=== PATIENT | female | born 1990 | race Caucasian/White ===

== ENCOUNTER → 2016-03-01 | Outpatient (CLI) | payer OTHER ==
[~2016-03-01] MED LIST: *ANUSOI TOP; IBUP600T OR; MILKSUS OR; NO HOME MEDICATION; No Historical Meds; PRENTAB8 PO; VICO5TAB; ZOLO50TA OR; ZOLO50TA PO
--- NOTE | 2016-03-01 18:04 | REP ---
Clinical: Early . Assess for viability. Technique: Transabdominal and transvaginal first trimester obstetrical ultrasound with Doppler interrogation of the maternal ovaries and fetus. Findings: Retroverted uterus measures 8.2 x 5.6 x 6.9 cm. Gestational sac with yolk sac and pole identified. CRL of 3.1 mm corresponds to 5 weeks 6 days gestational age and no cardiac activity is identified. Maternal ovaries are normal in appearance and vascularity without torsion. Right maternal ovary measures 3.6 x 3.6 x 3.5 cm with 2.3 cm cyst; RI equal 0.71. Left maternal ovary measures 3.9 x 2.7 x 2.3 cm with 2.4 cm corpus luteal cyst; RI equals 0.62. No pelvic fluid. Impression:Early at 5w 6d gestational age without cardiac activity. Differential diagnosis includes early live as well as spontaneous . Correlation with serial HCG levels is recommended along with a repeat ultrasound if necessary. Signed by José Miguel Moreno MD 03/01/2016 05:55 P
== END ==
LOC: M RAD 17:06
PROVIDERS: ATTEND Nurse Practitioner Women's Health
DX: O36.80X0 Pregnancy with inconclusive fetal viability, not applicable or unspecified (principal)

== ENCOUNTER → 2016-03-03 | Outpatient (CLI) | payer OTHER | LOC: M LAB 14:26 | PROVIDERS: ATTEND Nurse Practitioner Women's Health | DX: O20.0 Threatened abortion (principal) ==

== ENCOUNTER → 2016-03-06 | Outpatient (CLI) | payer OTHER | LOC: M LAB 09:46 | PROVIDERS: ATTEND Nurse Practitioner Women's Health | DX: O02.1 Missed abortion (principal) ==

== ENCOUNTER 2016-04-16 18:11 | Emergency (ER) | payer OTHER ==
[2016-04-16] MEDS ORDERED: METHOCARBAMOL 500 MG TAB As Ordered ONE (19:35)
[2016-04-16] MEDS ORDERED: IBUPROFEN 400 MG TAB As Ordered ONE (19:35)
--- NOTE | 2016-04-16 20:55 | EDDOCDS ---
Physician Documentation [facility] Name: Lucía Newton Age: 26 yrs Sex: Female : 1990 Arrival Date: 04/16/2016 Time: 18:11 Bed TR7 Private MD: Carlos Hancock A. Disposition: 04/16/16 20:19 Discharged to Home/Self Care. Impression: Pain in left shoulder - AC SEPARATION, MILD. - Condition is Stable. - Discharge Instructions: Shoulder Separation. - Prescriptions for Ultram 50 mg Oral Tablet - take 1 tablet by ORAL route every [address] MADRID MDD: 4 tabs; 20 tablet. - Medication Reconciliation, Local Pharmacy Hours, Work Release Form - 1 day form. - Follow up: [facility]; When: 2 - 3 days; Reason: Recheck today's complaints, Continuance of care. - Problem is new. - Symptoms have improved. - Notes: USE SLING AND ULTRAM INSTRUCTED, FOLLOW UP WITH [facility], RETURN TO THE ER IF THE SYMPTOMS WORSEN OR BECOME CONCERNING Historical: - Allergies: pecans; - Home Meds: 1. none - PMHx: ectopic ; - PSHx: Exploratory during ectopic; - Social history: Smoking status: Patient uses tobacco products, current some day smoker. No barriers to communication noted, The patient speaks fluent Maltese, Speaks appropriately for age. - Family history: Not pertinent. - : The pt / caregiver states he / she is not on anticoagulants. Home medication list is obtained from the patient. - Exposure Risk Screening:: None identified. 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 1 in. (154.94 cm) (R); Pain 6/10; 20:53 BP 129 / 67; Pulse 78; Resp 16; Pulse Ox 97% on R/A; cz 18:12 Body Mass Index 24.56 (58.97 kg, 154.94 cm) lr2 Procedures: 20:21 Fracture care/splinting: Splint applied to left arm using sling, applied by nurse. ck7 Examined by me, post splint application: neurovascular intact, 2+ distal pulses palpable, brisk capillary refill noted, Patient tolerated well. MDM: 19:31 Ibuprofen 400 mg PO once ordered. ck7 19:31 Methocarbamol 1 grams PO once ordered. ck7 19:32 Shoulder, Complete Ordered. EDMS 19:57 Financial registration complete. gjb 20:18 Sling ordered. ck7 20:47 [facility] [place] was scanned into [employer] and attached to record. gjb Administered Medications: 19:39 Drug: Ibuprofen 400 mg [ibuprofen 400 mg tablet (1 tabs)] Route: PO; cz 19:39 Drug: Methocarbamol 1 grams [methocarbamol 500 mg tablet (2 tabs)] Route: PO; cz Signatures: Dispatcher [employer] EDMS Awais Ashby, RN RN Nelson Ibanez, RPA-C RPA-Cck7 Suyapa UlloaRN RN Kathrin Gayle The chart was reviewed and I authenticate all verbal orders and agree with the evaluation and treatment provided.Attachments: 20:47 [facility] Payment Agreement gjb [email or web address]
--- NOTE | 2016-04-16 20:55 | EDDOCDS ---
Nurse's Notes [facility] Name: Lucía Newton Age: 26 yrs Sex: Female : 1990 Arrival Date: 04/16/2016 Time: 18:11 Bed TR7 Private MD: Carlos Hancock A. Diagnosis: Pain in left shoulder-AC SEPARATION, MILD Presentation: 04/16 18:18 Presenting complaint: Patient states: pt c/o left shoulder and left upper back pain, ead denies known injury. Adult Sepsis Screening: The patient does not have new or worsening altered mentation. Patient's respiratory rate is less than 22. Systolic blood pressure is greater than 100. Patient has a qSOFA score of 0- Negative Sepsis Screen. Suicide/Homicide risk assessment- the patient denies having any suicidal and/or homicidal ideations and does not present with any other emotional, behavioral or mental health complaints. Status: Patient is not a animal services officer or dependent. Transition of care: patient was not received from another setting of care. 18:18 Acuity: CAROLYNN Level 4 ead 18:18 Method Of Arrival: Walkin/Carried/Asstd ead Triage Assessment: 18:19 General: Appears in no apparent distress, comfortable, Behavior is appropriate for age, ead cooperative. Pain: Location: left trapezius, left scapular area and anterior aspect of left shoulder Pain currently is 6 out of 10 on a pain scale. HIV screening NA for this visit Offered previously. Neurological: Level of Consciousness is awake, alert, obeys commands, Oriented to person, place, time. Respiratory: Airway is patent Respiratory effort is even, unlabored. Derm: Skin is pink, warm & dry. Musculoskeletal: Reports pain in left trapezius, left scapular area and anterior aspect of left shoulder. WEB ENGINEER: 18:19 LMP 03/26/2016 ead Historical: - Allergies: pecans; - Home Meds: 1. none - PMHx: ectopic ; - PSHx: Exploratory during ectopic; - Social history: Smoking status: Patient uses tobacco products, current some day smoker. No barriers to communication noted, The patient speaks fluent [place] Citizen, Speaks appropriately for age. - Family history: Not pertinent. - : The pt / caregiver states he / she is not on anticoagulants. Home medication list is obtained from the patient. - Exposure Risk Screening:: None identified. Screenin:53 Screening information is obtained from the patient. Fall risk: No risks identified. cz Assistance ADL's: requires no assistance with activities of daily living. Abuse/DV Screen: The patient / caregiver reports he/she is: not in a situation that causes fear, pain or injury. Nutritional screening: No deficits noted. home support is adequate. Assessment: 20:53 Reassessment: Patient appears in no apparent distress at this time. Patient states cz symptoms have improved. alert female with left shoulder pain with RO . Vital Signs: 18:12 BP 105 / 64; Pulse 75; Resp 16; Temp 97.3(O); Pulse Ox 99% on R/A; Weight 58.97 kg (R); lr2 Height 5 ft. 1 in. (154.94 cm) (R); Pain 6/10; 20:53 BP 129 / 67; Pulse 78; Resp 16; Pulse Ox 97% on R/A; cz 18:12 Body Mass Index 24.56 (58.97 kg, 154.94 cm) lr2 Vitals: 18:12 Log In Time: April 16, 2016 at 18:11. lr2 ED Course: 18:12 Patient visited by Shelby Pérez. lr2 18:12 Patient moved to Waiting lr2 18:13 Carlos Hancock is Private Physician. lr2 18:13 Patient moved to Pre RCE lr2 18:18 Triage Initiated ead 19:08 Patient moved to Triage 1 ar3 19:15 Nelson Valentine RPA-C [facility]. ck7 19:15 Dileep Reyes DO is Attending Physician. ck7 19:16 Patient visited by Nelson Valentnie RPA-C. ck7 19:39 Patient moved to TR8 cz 19:59 Patient moved to TR1 ar3 20:17 Patient visited by Nelson Valentine RPA-C. ck7 20:18 [facility] is Referral Physician. ck7 20:47 [facility] Payment Agreement was scanned into [employer] and attached to record. gjb 20:52 Patient moved to TR7 ar3 20:53 The patient / caregiver is instructed regarding the plan of care and ED course. cz 20:53 No IV's were initiated during this patient's visit. No procedures done that require cz assistance. Administered Medications: 19:39 Drug: Ibuprofen 400 mg [ibuprofen 400 mg tablet (1 tabs)] Route: PO; cz 19:39 Drug: Methocarbamol 1 grams [methocarbamol 500 mg tablet (2 tabs)] Route: PO; cz Order Results: There are currently no results for this order. Outcome: 20:19 Discharge ordered by Provider. ck7 20:53 Discharge Assessment: Patient awake, alert and oriented x 3. No cognitive and/or cz functional deficits noted. Patient verbalized understanding of disposition instructions. patient administered narcotics - no. The following High Risk Discharge criteria are identified: None. Discharged to home ambulatory. Condition: stable. Discharge instructions given to patient, Instructed on discharge instructions, follow up and referral plans. medication usage, Demonstrated understanding of instructions, medications, Pt was receptive of discharge instructions/ teaching. Prescriptions given X 1. No special radiology studies were completed. Property :Personal belongings accompany Pt. 20:55 Patient left the ED. cz Signatures: Awais Ashby, RN RN Asuncion Lucio, GENERATION MECHANIC HELPER GENERATION MECHANIC HELPER ar3 Nelson Valentine, RPA-C RPA-Cck7 Suyapa Ulloa,RN RN Kathrin Gayle Laura lr2 MTDD
--- NOTE | 2016-04-17 07:09 | REP ---
Left shoulder series: three views. History: Deformity and swelling. Findings: The left distal clavicle is aligned somewhat superior with respect to the acromion process consistent with an AC separation injury. This should be correlated clinically. There is no discernible overlying soft tissue swelling. The glenohumeral articulation is normally aligned. No fracture seen. Impression: Possible AC separation injury, mild. No fracture seen. Signed by Juancho John MD 04/17/2016 08:31 A
--- NOTE | 2016-04-18 21:56 | EDDOCDS ---
Physician Documentation [facility] Name: Lucía Newton Age: 26 yrs Sex: Female : 1990 Arrival Date: 04/16/2016 Time: 18:11 Bed TR7 Private MD: Carlos Hancock A. Disposition: 04/16/16 20:19 Discharged to Home/Self Care. Impression: Pain in left shoulder - AC SEPARATION, MILD. - Condition is Stable. - Discharge Instructions: Shoulder Separation. - Prescriptions for Ultram 50 mg Oral Tablet - take 1 tablet by ORAL route every [address] MADRID MDD: 4 tabs; 20 tablet. - Medication Reconciliation, Local Pharmacy Hours, Work Release Form - 1 day form. - Follow up: [facility] [place]; When: 2 - 3 days; Reason: Recheck today's complaints, Continuance of care. - Problem is new. - Symptoms have improved. - Notes: USE SLING AND ULTRAM INSTRUCTED, FOLLOW UP WITH [facility], RETURN TO THE ER IF THE SYMPTOMS WORSEN OR BECOME CONCERNING Historical: - Allergies: pecans; - Home Meds: 1. none - PMHx: ectopic ; - PSHx: Exploratory during ectopic; - Social history: Smoking status: Patient uses tobacco products, current some day smoker. No barriers to communication noted, The patient speaks fluent Kiswahili, Speaks appropriately for age. - Family history: Not pertinent. - : The pt / caregiver states he / she is not on anticoagulants. Home medication list is obtained from the patient. - Exposure Risk Screening:: None identified. INSPECTOR LINE: 04/16 18:19 LMP 03/26/2016 ead Vital Signs: 18:12 BP 105 / 64; Pulse 75; Resp 16; Temp 97.3(O); Pulse Ox 99% on R/A; Weight 58.97 kg / lr2 130.01 lbs (R); Height 5 ft. 1 in. (154.94 cm) (R); Pain 6/10; 20:53 BP 129 / 67; Pulse 78; Resp 16; Pulse Ox 97% on R/A; cz 18:12 Body Mass Index 24.56 (58.97 kg, 154.94 cm) lr2 Procedures: 20:21 Fracture care/splinting: Splint applied to left arm using sling, applied by nurse. ck7 Examined by me, post splint application: neurovascular intact, 2+ distal pulses palpable, brisk capillary refill noted, Patient tolerated well. MDM: 19:31 Ibuprofen 400 mg PO once ordered. ck7 19:31 Methocarbamol 1 grams PO once ordered. ck7 19:32 Shoulder, Complete Ordered. EDMS 19:57 Financial registration complete. gjb 20:18 Sling ordered. ck7 20:47 [facility] Payment Agreement was scanned into [employer] and attached to record. gjb Administered Medications: 19:39 Drug: Ibuprofen 400 mg [ibuprofen 400 mg tablet (1 tabs)] Route: PO; cz 19:39 Drug: Methocarbamol 1 grams [methocarbamol 500 mg tablet (2 tabs)] Route: PO; cz Signatures: Dispatcher [employer] EDMS Awais Ashby, RN RN Nelson Ibanez, RPA-C RPA-Cck7 Suyapa UlloaRN RN Kathrin Gayle The chart was reviewed and I authenticate all verbal orders and agree with the evaluation and treatment provided.Attachments: 20:47 [facility] Payment Agreement gjb Chart Complete MTDD
--- NOTE | 2016-04-18 21:56 | EDDOCDS ---
Nurse's Notes [facility] Name: Lucía Newton Age: 26 yrs Sex: Female : 1990 Arrival Date: 04/16/2016 Time: 18:11 Bed TR7 Private MD: Carlos Hancock A. Diagnosis: Pain in left shoulder-AC SEPARATION, MILD Presentation: 04/16 18:18 Presenting complaint: Patient states: pt c/o left shoulder and left upper back pain, ead denies known injury. Adult Sepsis Screening: The patient does not have new or worsening altered mentation. Patient's respiratory rate is less than 22. Systolic blood pressure is greater than 100. Patient has a qSOFA score of 0- Negative Sepsis Screen. Suicide/Homicide risk assessment- the patient denies having any suicidal and/or homicidal ideations and does not present with any other emotional, behavioral or mental health complaints. Status: Patient is not a care services manager or dependent. Transition of care: patient was not received from another setting of care. 18:18 Acuity: CAROLYNN Level 4 ead 18:18 Method Of Arrival: Walkin/Carried/Asstd ead Triage Assessment: 18:19 General: Appears in no apparent distress, comfortable, Behavior is appropriate for age, ead cooperative. Pain: Location: left trapezius, left scapular area and anterior aspect of left shoulder Pain currently is 6 out of 10 on a pain scale. HIV screening NA for this visit Offered previously. Neurological: Level of Consciousness is awake, alert, obeys commands, Oriented to person, place, time. Respiratory: Airway is patent Respiratory effort is even, unlabored. Derm: Skin is pink, warm & dry. Musculoskeletal: Reports pain in left trapezius, left scapular area and anterior aspect of left shoulder. 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 none - PMHx: ectopic ; - PSHx: Exploratory during ectopic; - Social history: Smoking status: Patient uses tobacco products, current some day smoker. No barriers to communication noted, The patient speaks fluent Paraguayan, Speaks appropriately for age. - Family history: Not pertinent. - : The pt / caregiver states he / she is not on anticoagulants. Home medication list is obtained from the patient. - Exposure Risk Screening:: None identified. Screenin:53 Screening information is obtained from the patient. Fall risk: No risks identified. cz Assistance ADL's: requires no assistance with activities of daily living. Abuse/DV Screen: The patient / caregiver reports he/she is: not in a situation that causes fear, pain or injury. Nutritional screening: No deficits noted. home support is adequate. Assessment: 20:53 Reassessment: Patient appears in no apparent distress at this time. Patient states cz symptoms have improved. alert female with left shoulder pain with RO . Vital Signs: 18:12 BP 105 / 64; Pulse 75; Resp 16; Temp 97.3(O); Pulse Ox 99% on R/A; Weight 58.97 kg (R); lr2 Height 5 ft. 1 in. (154.94 cm) (R); Pain 6/10; 20:53 BP 129 / 67; Pulse 78; Resp 16; Pulse Ox 97% on R/A; cz 18:12 Body Mass Index 24.56 (58.97 kg, 154.94 cm) lr2 Vitals: 18:12 Log In Time: April 16, 2016 at 18:11. lr2 ED Course: 18:12 Patient visited by Shelby Pérez. lr2 18:12 Patient moved to Waiting lr2 18:13 Carlos Hancock is Private Physician. lr2 18:13 Patient moved to Pre RCE lr2 18:18 Triage Initiated ead 19:08 Patient moved to Triage 1 ar3 19:15 Nelson Valentine RPA-C [facility]. ck7 19:15 Dileep Reyes DO is Attending Physician. ck7 19:16 Patient visited by Nelson Valentine RPA-C. ck7 19:39 Patient moved to TR8 cz 19:59 Patient moved to TR1 ar3 20:17 Patient visited by Nelson Valentine RPA-C. ck7 20:18 [facility] is Referral Physician. ck7 20:47 [facility] Payment Agreement was scanned into [employer] and attached to record. gjb 20:52 Patient moved to TR7 ar3 20:53 The patient / caregiver is instructed regarding the plan of care and ED course. cz 20:53 No IV's were initiated during this patient's visit. No procedures done that require cz assistance. 04/17 07:23 Shoulder, Complete Returned. EDMS Administered Medications: 04/16 19:39 Drug: Ibuprofen 400 mg [ibuprofen 400 mg tablet (1 tabs)] Route: PO; cz 19:39 Drug: Methocarbamol 1 grams [methocarbamol 500 mg tablet (2 tabs)] Route: PO; cz Order Results: Radiology Order: Shoulder, Complete Test: Shoulder, Complete REASON FOR EXAMINATION: Deformity/Swelling; Left shoulder series: three views.; ; History: Deformity and swelling.; ; Findings: The left distal clavicle is aligned somewhat superior with respect to; the acromion process consistent with an AC separation injury. This should be; correlated clinically. There is no discernible overlying soft tissue swelling.; The glenohumeral articulation is normally aligned. No fracture seen.; ; Impression:; ; Possible AC separation injury, mild. No fracture seen.; ; ; Signed by; Juancho John MD 04/17/2016 08:31 A; Outcome: 20:19 Discharge ordered by Provider. ck7 20:53 Discharge Assessment: Patient awake, alert and oriented x 3. No cognitive and/or cz functional deficits noted. Patient verbalized understanding of disposition instructions. patient administered narcotics - no. The following High Risk Discharge criteria are identified: None. Discharged to home ambulatory. Condition: stable. Discharge instructions given to patient, Instructed on discharge instructions, follow up and referral plans. medication usage, Demonstrated understanding of instructions, medications, Pt was receptive of discharge instructions/ teaching. Prescriptions given X 1. No special radiology studies were completed. Property :Personal belongings accompany Pt. 20:55 Patient left the ED. cz Signatures: Dispatcher MedHost EDMS Awais Ashby RN RN cz Rabon, Alicia, GRINDER SET UP OPERATOR INTERNAL GRINDER SET UP OPERATOR INTERNAL ar3 Nelson Valentine, RPA-C RPA-Cck7 Suyapa Ulloa,RN RN Kathrin Gayle Laura lr2 Chart Complete MTDD
--- NOTE | 2016-04-18 21:56 | EDDOCDS ---
Physician Documentation [facility] Name: Lucía Newton Age: 26 yrs Sex: Female : 1990 Arrival Date: 04/16/2016 Time: 18:11 Bed TR7 Private MD: Carlos Hancock A. Disposition: 04/16/16 20:19 Discharged to Home/Self Care. Impression: Pain in left shoulder - AC SEPARATION, MILD. - Condition is Stable. - Discharge Instructions: Shoulder Separation. - Prescriptions for Ultram 50 mg Oral Tablet - take 1 tablet by ORAL route every [address] MADRID MDD: 4 tabs; 20 tablet. - Medication Reconciliation, Local Pharmacy Hours, Work Release Form - 1 day form. - Follow up: [facility]; When: 2 - 3 days; Reason: Recheck today's complaints, Continuance of care. - Problem is new. - Symptoms have improved. - Notes: USE SLING AND ULTRAM INSTRUCTED, FOLLOW UP WITH [facility], RETURN TO THE ER IF THE SYMPTOMS WORSEN OR BECOME CONCERNING Historical: - Allergies: pecans; - Home Meds: 1. none - PMHx: ectopic ; - PSHx: Exploratory during ectopic; - Social history: Smoking status: Patient uses tobacco products, current some day smoker. No barriers to communication noted, The patient speaks fluent Setswana, Speaks appropriately for age. - Family history: Not pertinent. - : The pt / caregiver states he / she is not on anticoagulants. Home medication list is obtained from the patient. - Exposure Risk Screening:: None identified. 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 1 in. (154.94 cm) (R); Pain 6/10; 20:53 BP 129 / 67; Pulse 78; Resp 16; Pulse Ox 97% on R/A; cz 18:12 Body Mass Index 24.56 (58.97 kg, 154.94 cm) lr2 Procedures: 20:21 Fracture care/splinting: Splint applied to left arm using sling, applied by nurse. ck7 Examined by me, post splint application: neurovascular intact, 2+ distal pulses palpable, brisk capillary refill noted, Patient tolerated well. MDM: 19:31 Ibuprofen 400 mg PO once ordered. ck7 19:31 Methocarbamol 1 grams PO once ordered. ck7 19:32 Shoulder, Complete Ordered. EDMS 19:57 Financial registration complete. gjb 20:18 Sling ordered. ck7 20:47 [facility] Payment Agreement was scanned into [employer] and attached to record. gjb Administered Medications: 19:39 Drug: Ibuprofen 400 mg [ibuprofen 400 mg tablet (1 tabs)] Route: PO; cz 19:39 Drug: Methocarbamol 1 grams [methocarbamol 500 mg tablet (2 tabs)] Route: PO; cz Signatures: Dispatcher [employer] EDMS Awais Ashby, RN RN Nelson Ibanez, RPA-C RPA-Cck7 Suyapa UlloaRN RN Kathrin Gayle The chart was reviewed and I authenticate all verbal orders and agree with the evaluation and treatment provided.Attachments: 20:47 [facility] Payment Agreement gjb Chart Complete MTDD
== END 2016-04-16 20:55 | disposition home or self-care (01) ==
LOC: M ED 18:11
DX: S43.102A Unspecified dislocation of left acromioclavicular joint, initial encounter (principal); F17.210 Nicotine dependence, cigarettes, uncomplicated; Z91.010 Allergy to peanuts; X58.XXXA Exposure to other specified factors, initial encounter; Y92.89 Other specified places as the place of occurrence of the external cause; Y93.89 Activity, other specified; Y99.9 Unspecified external cause status

== ENCOUNTER 2016-04-25 14:39 | Emergency (ER) | payer OTHER, SELFPAY ==
[~2016-04-25] VITALS: Ht 154.9 cm; Wt 59.0 kg
[2016-04-25] MEDS ORDERED: IBUP600T26 PO (15:06)
[2016-04-25] MEDS ORDERED: TRAM50TA2 PO (15:06)
[2016-04-25] MEDS ORDERED: ONDANSETRON 4MG/2ML VIAL (J2405) IV ONE (15:45)
[2016-04-25] MEDS ORDERED: NS 1,000 ML IV ONE (15:45)
[2016-04-25 16:15] LABS: BASO % 0.3 % (0.0-1.0); EOS # 0.2 K/mm3 (0.0-0.50); EOS % 1.2 % (0.0-3.0); LARGE UNSTAINED CELL # 0.1 K/mm3 (0.0-0.4); LARGE UNSTAINED CELL % 0.5 % (0.0-4.0); LYMPH # 1.3 K/mm3 (1.5-6.5); LYMPH % 7.1 % (24.0-44.0); MEAN CORPUSCULAR HEMOGLOBIN 31.3 pg (27.0-33.0); MEAN CORPUSCULAR HGB CONC 33.6 g/dl (32.0-36.5); MEAN CORPUSCULAR VOLUME 93.3 fl (80.0-96.0); MONO # 0.6 K/mm3 (0.0-0.8); MONO % 3.4 % (0.0-5.0); NEUTROPHILS # 14.7 K/mm3 (1.8-7.7); NEUTROPHILS % 87.5 % (36.0-66.0); PLATELET COUNT, AUTOMATED 257 k/mm3 (150-450); RED CELL DISTRIBUTION WIDTH 12.3 % (11.5-14.5); WHITE BLOOD COUNT 16.8 K/mm3 (4.0-10.0)
[2016-04-25 16:37] LABS: CONTROL LINE HCG INT CTR LINE PRESENT
[2016-04-25 16:41] LABS: METHADONE URINE NEGATIVE (NEGATIVE)
[2016-04-25 16:52] LABS: ALBUMIN 4.5 GM/DL (3.2-5.2); ALBUMIN/GLOBULIN RATIO 1.22 (1.00-1.93); ALKALINE PHOSPHATASE 78 U/L (45-117); ALT/SGPT 32 U/L (12-78); ANION GAP 12 MEQ/L (8-16); AST/SGOT 33 U/L (15-37); BILIRUBIN,DIRECT < 0.1 MG/DL (0.0-0.2); BILIRUBIN,TOTAL 0.3 MG/DL (0.2-1.0); BLOOD UREA NITROGEN 12 MG/DL (7-18); CALCIUM LEVEL 9.2 MG/DL (8.5-10.1); CARBON DIOXIDE LEVEL 23 MEQ/L (21-32); CHLORIDE LEVEL 107 MEQ/L (98-107); CREATININE FOR GFR 0.82 MG/DL (0.55-1.02); GLOMERULAR FILTRATION RATE > 60.0 (>60); GLUCOSE, FASTING 105 MG/DL (70-105); POTASSIUM SERUM 4.1 MEQ/L (3.5-5.1); SODIUM LEVEL 142 MEQ/L (136-145); TOTAL PROTEIN 8.2 GM/DL (6.4-8.2)
[2016-04-25] MEDS ORDERED: CYCL10TA PO (18:01)
[2016-04-25 18:05] VITALS: BP 101/59
--- NOTE | 2016-04-25 18:42 | REP ---
KUB ABDOMEN AND PELVIS: KUB film of the abdomen and pelvis is performed. Bowel gas pattern is normal with no obstruction. No abnormal calcifications are seen. Visualized osseous structures are unremarkable. IMPRESSION: Negative exam. Signed by Jose Miguel Moreno MD 04/26/2016 04:39 P
--- NOTE | 2016-04-26 20:16 | ECGEPIP ---
Stationary ECG Study [facility] - ED Test Date: 2016-04-25 Pat Name: SHAYY JAMES Department: Room: - Gender: F Client Care Specialist: ZAHRA : 1990 Requested By: JOHANNY BAEZ Order Number: [id number] Reading MD: Ankita Romeo Measurements Intervals [place] Rate: 78 P: 43 OK: 150 QRS: 57 QRSD: 102 T: 37 QT: 365 QTc: 418 Interpretive Statements SINUS RHYTHM WITH SINUS ARRHYTHMIA POSSIBLE RIGHT VENTRICULAR CONDUCTION DELAY NONSPECIFIC ST T WAVE CHANGES 02/04/13 - RATE DECREASED Electronically Signed On 04-26-2016 20:16:05 EST by Ankita Romeo
== END 2016-04-25 18:10 | disposition home or self-care (01) ==
LOC: EDBD 14:39 → M ED 15:52
DX: T40.4X1A Poisoning by other synthetic narcotics, accidental (unintentional), initial encounter (principal); T39.311A Poisoning by propionic acid derivatives, accidental (unintentional), initial encounter; R11.2 Nausea with vomiting, unspecified; Y92.89 Other specified places as the place of occurrence of the external cause; F17.210 Nicotine dependence, cigarettes, uncomplicated; Z91.018 Allergy to other foods
CPT/HCPCS: 74000; 80048; 80076; 80306; 81001; 82550; 84443; 84703; 85025; 93005; 93041; 94760; 96361; 96374; 99285; G0480; J2405

== ENCOUNTER 2016-10-20 03:39 | Emergency (ER) | payer SELFPAY ==
[~2016-10-20] VITALS: Ht 154.9 cm; Wt 59.1 kg
[~2016-10-20 03:39] MED LIST changes: +CYCL10TA PO; +IBUP-1022 PO; +TRAM50TA2 PO
[2016-10-20] MEDS ORDERED: cefTRIAXone SOD 250 MG VIAL (J0696) IM ONE (07:15)
[2016-10-20] MEDS ORDERED: metroNIDAZOLE (FLAGYL) 500 MG TAB PO ONE ×2 (07:15→09:00)
[2016-10-20] MEDS ORDERED: ADACEL/BOOSTRIX VACCINE (DIPHTH/PERTUSS/ACELL/TETANUS)0.5ML SYR (90715) IM ONE (07:15)
[2016-10-20] MEDS ORDERED: AZITHROMYCIN 250 MG TAB PO ONE ×2 (07:15→09:00)
[2016-10-20] MEDS ORDERED: ULIPRISTAL ACETATE 30 MG TAB (ELLA) PO ONE ×2 (07:15→09:00)
[2016-10-20] MEDS ORDERED: EXPOSURE KIT-ADULT 7 DAY SUPPLY PO ONE ×2 (07:15)
[2016-10-20] MEDS ORDERED: ONDANSETRON 4 MG ORAL DISINTEGRATING TAB (S0181) PO ONE ×2 (09:00→10:45)
[2016-10-20 09:09] LABS: BASO # 0.1 K/mm3 (0.0-0.2); BASO % 0.7 % (0.0-1.0); EOS # 0.1 K/mm3 (0.0-0.50); EOS % 0.7 % (0.0-3.0); LARGE UNSTAINED CELL # 0.1 K/mm3 (0.0-0.4); LARGE UNSTAINED CELL % 1.8 % (0.0-4.0); LYMPH # 1.6 K/mm3 (1.5-6.5); LYMPH % 19.3 % (24.0-44.0); MEAN CORPUSCULAR HEMOGLOBIN 30.8 pg (27.0-33.0); MEAN CORPUSCULAR HGB CONC 35.2 g/dl (32.0-36.5); MEAN CORPUSCULAR VOLUME 87.4 fl (80.0-96.0); MONO # 0.4 K/mm3 (0.0-0.8); MONO % 4.8 % (0.0-5.0); NEUTROPHILS # 5.9 K/mm3 (1.8-7.7); NEUTROPHILS % 72.7 % (36.0-66.0); PLATELET COUNT, AUTOMATED 262 k/mm3 (150-450); RED CELL DISTRIBUTION WIDTH 12.3 % (11.5-14.5); WHITE BLOOD COUNT 8.1 K/mm3 (4.0-10.0)
[2016-10-20 09:29] LABS: CONTROL LINE HCG INT CTR LINE PRESENT
[2016-10-20 09:41] LABS: ALBUMIN 4.2 GM/DL (3.2-5.2); ALKALINE PHOSPHATASE 67 U/L (45-117); ALT/SGPT 16 U/L (12-78); ANION GAP 10 MEQ/L (8-16); AST/SGOT 13 U/L (15-37); BILIRUBIN,TOTAL 0.4 MG/DL (0.2-1.0); BLOOD UREA NITROGEN 9 MG/DL (7-18); CARBON DIOXIDE LEVEL 24 MEQ/L (21-32); CHLORIDE LEVEL 109 MEQ/L (98-107); CREATININE FOR GFR 0.73 MG/DL (0.55-1.02); GLOMERULAR FILTRATION RATE > 60.0 (>60); GLUCOSE, FASTING 88 MG/DL (70-105); POTASSIUM SERUM 3.7 MEQ/L (3.5-5.1); SODIUM LEVEL 143 MEQ/L (136-145); TOTAL PROTEIN 8.4 GM/DL (6.4-8.2)
--- NOTE | 2016-10-20 10:04 | REP ---
Clinical: Trauma. Fall . Technique: Internal rotation, external rotation, and Y view left shoulder. Findings: No acute fracture or dislocation. The acromioclavicular and glenohumeral joints are intact. No periarticular calcifications or degenerative changes are appreciated. Sub acromial space is normal. Surrounding soft tissues are unremarkable. Impression: Normal left shoulder radiographs. Signed by José Miguel Moreno MD 10/20/2016 09:55 A
[2016-10-20] MEDS ORDERED: ZOFR4TAB3 PO (12:38)
[2016-10-20 12:51] VITALS: BP 118/76
[2016-10-20 16:35] LABS: CONTROL LINE INT CTR LINE PRESENT; HIV SCRN NEGATIVE (NEGATIVE); HIV SCRN1 NEGATIVE (NEGATIVE)
[2016-10-22 10:59] LABS: HEPATITIS B SURFACE ANTIBODY POSITIVE (POSITIVE)
== END 2016-10-20 12:53 | disposition home or self-care (01) ==
LOC: M ED 03:39
DX: T76.21XA Adult sexual abuse, suspected, initial encounter (principal); S40.012A Contusion of left shoulder, initial encounter; Y07.9 Unspecified perpetrator of maltreatment and neglect; Y92.810 Car as the place of occurrence of the external cause; Y93.89 Activity, other specified; Y99.8 Other external cause status; Z91.018 Allergy to other foods
CPT/HCPCS: 73030; 80053; 84703; 85025; 86706; 86780; 86803; 87210; 87340; 87491; 87591; 87806; 90471; 90715; 96372; 99282; J0696

== ENCOUNTER 2018-02-07 15:59 | Emergency (ER) | payer SELFPAY ==
[2018-02-07 16:35] LABS: KETONE, URINE AUTO RFX NEGATIVE (NEGATIVE); LEUKOCYTE ESTERASE UR AUTO RFX NEGATIVE (NEGATIVE); MUCUS, URINE RFX SMALL (NEGATIVE); NITRITE, URINE AUTO RFX NEGATIVE (NEGATIVE); RBC, URINE AUTO RFX 1 /HPF (0-3); SPECIFIC GRAVITY UR AUTO RFX 1.018 (1.002-1.035); SQUAM EPITHELIAL CELL UR AURFX 9 /HPF (0-6); WBC, URINE AUTO RFX 2 /HPF (0-3)
[2018-02-07] MEDS: ACETAMINOPHEN 325 MG TAB PO (16:36)
[2018-02-07] MEDS: NITROFURANTOIN (MACROBID) 100 MG CAP PO (16:36)
[2018-02-07] MEDS: PHENAZOPYRIDINE 100 MG TAB PO (16:36)
[2018-02-07 18:43] LABS: CHLAMYDIA DNA AMPLIFICATION NEGATIVE (NEGATIVE); GC DNA AMPLIFICATION NEGATIVE (NEGATIVE)
== END 2018-02-07 17:15 | disposition home or self-care (01) ==
LOC: M ED 15:59
DX: R30.0 Dysuria (principal); R10.2 Pelvic and perineal pain; R56.9 Unspecified convulsions; F32.9 Major depressive disorder, single episode, unspecified; Z88.1 Allergy status to other antibiotic agents; Z91.018 Allergy to other foods
CPT/HCPCS: 81001

== ENCOUNTER 2018-02-09 04:15 | Emergency (ER) | payer SELFPAY ==
[~2018-02-09] VITALS: Ht 154.9 cm; Wt 72.3 kg
[2018-02-09 04:15] VITALS: BP 132/84
[~2018-02-09 04:15] MED LIST changes: +PYRI1TAB5 PO; +ZOFR4TAB14 PO
[2018-02-09 04:36] LABS: BILIRUBIN, URINE MANUAL OBSCURED (NEGATIVE); GLUCOSE, URINE (UA) MANUAL NEGATIVE (NEGATIVE); KETONE, URINE MANUAL OBSCURED mg/dL (NEGATIVE); UROBILINOGEN, URINE MANUAL OBSCURED mg/dl (NORMAL)
[2018-02-09] MEDS ORDERED: IBUP200C25 PO (04:42)
[2018-02-09 04:48] LABS: RBC, URINE 0-1 /hpf (0-3)
[2018-02-09 04:49] LABS: BACTERIA, URINE MOD AMOUNT; HYALINE CAST, URINE NONE SEEN /lpf (0-1); SQUAMOUS EPITHELIAL CELL URINE MOD AMOUNT /hpf (SMALL AMT)
[2018-02-09 04:50] LABS: AMORPHOUS SEDIMENT, URINE SMALL AMOUNT (NEGATIVE); MUCUS, URINE MOD AMOUNT (NEGATIVE)
[2018-02-09] MEDS ORDERED: CIPR-249 PO (05:04)
[2018-02-09] MEDS: CIPROFLOXACIN 500 MG TAB PO ONE (05:08)
== END 2018-02-09 05:18 | disposition home or self-care (01) ==
LOC: M ED 04:15
DX: N39.0 Urinary tract infection, site not specified (principal); Z88.2 Allergy status to sulfonamides; Z88.8 Allergy status to other drugs, medicaments and biological substances; Z91.018 Allergy to other foods

== ENCOUNTER 2018-02-09 21:59 | Emergency (ER) | payer SELFPAY ==
[~2018-02-09] VITALS: Ht 154.9 cm; Wt 71.4 kg
[~2018-02-09 21:59] MED LIST changes: +CIPR-249 PO; +IBUP200C25 PO
[2018-02-09] MEDS: ACETAMINOPHEN TAB 650MG DOSE (2X325MG) PO ONE (22:30)
[2018-02-09 22:48] LABS: BASO % 0.1 % (0.0-1.0); EOS # 0.1 10^3/uL (0.0-0.50); HEMATOCRIT 39.6 % (36.0-47.0); HEMOGLOBIN 13.2 g/dl (12.0-15.5); LYMPH # 0.7 10^3/uL (1.5-6.5); MEAN CORPUSCULAR HEMOGLOBIN 29.9 pg (27.0-33.0); MEAN CORPUSCULAR HGB CONC 33.3 g/dl (32.0-36.5); MEAN CORPUSCULAR VOLUME 89.6 fl (80.0-96.0); MONO # 0.5 10^3/uL (0.0-0.8); MONO % 5.3 % (0.0-5.0); NEUTROPHILS # 8.2 10^3/uL (1.8-7.7); NEUTROPHILS % 86.4 % (36.0-66.0); PLATELET COUNT, AUTOMATED 217 10^3/uL (150-450); RED BLOOD COUNT 4.42 10^6/uL (4.00-5.40); WHITE BLOOD COUNT 9.4 10^3/uL (4.0-10.0)
[2018-02-09] MEDS: METOCLOPRAMIDE INJ 10MG/2ML VIAL (J2765) IV ONE (22:54)
[2018-02-09] MEDS: NS 1,000 ML IV ONE (22:54)
[2018-02-09 23:04] LABS: HCG, SERUM QUALITATIVE NEGATIVE (NEGATIVE)
[2018-02-09 23:12] LABS: ALBUMIN 3.8 GM/DL (3.2-5.2); ALT/SGPT 14 U/L (12-78); BILIRUBIN,DIRECT 0.1 MG/DL (0.0-0.2); BILIRUBIN,TOTAL 0.4 MG/DL (0.2-1.0); BLOOD UREA NITROGEN 8 MG/DL (7-18); CALCIUM LEVEL 8.8 MG/DL (8.5-10.1); CARBON DIOXIDE LEVEL 24 MEQ/L (21-32); CHLORIDE LEVEL 108 MEQ/L (98-107); CREATININE FOR GFR 0.81 MG/DL (0.55-1.30); GLOMERULAR FILTRATION RATE > 60.0 (>60); GLUCOSE, FASTING 102 MG/DL (70-100); LIPASE 74 U/L (73-393); POTASSIUM SERUM 3.7 MEQ/L (3.5-5.1); SODIUM LEVEL 141 MEQ/L (136-145); TOTAL PROTEIN 7.4 GM/DL (6.4-8.2)
[2018-02-09] MEDS ORDERED: ISOVUE-370 76% 100ML VIAL (Q9967) As Ordered ONE (23:31)
--- NOTE | 2018-02-10 00:56 | REPVR ---
EXAM: CT Abdomen and Pelvis With Contrast EXAM DATE/TIME: 02/09/2018 11:45 PM CLINICAL HISTORY: 27 years old, female; Abd pain, SIRS TECHNIQUE: Axial computed tomography images of the abdomen and pelvis with intravenous contrast. All CT scans at this facility use at least one of these dose optimization techniques: automated exposure control; mA and/or kV adjustment per patient size (includes targeted exams where dose is matched to clinical indication); or iterative reconstruction. Coronal and sagittal reformatted images were created and reviewed. CONTRAST: 100 ml of ISO 370 administered intravenously. COMPARISON: CT ABD PELVIS W/O CONTRAST 08/25/2014 8:02 PM FINDINGS: Lower thorax: Unremarkable. ABDOMEN: Liver: The attenuation of the liver is lower compared to the spleen, which can be seen with fatty liver infiltration. No liver lesion is seen. The contour of the liver is smooth. The liver is enlarged and measures 16.2 cm in craniocaudal dimension at the level of the right mid clavicular line. Gallbladder and bile ducts: No calcifications are seen in the gallbladder to suggest calculi. No gallbladder wall thickening, pericholecystic fluid, or pericholecystic inflammatory changes are identified. No dilation of the intrahepatic or extrahepatic bile ducts is noted. Pancreas: Normal. No ductal dilation. Spleen: Normal. No splenomegaly is noted. Incidental note is made of 2 small accessory spleens. Adrenals: Normal. No mass. Kidneys and ureters: The kidneys are normal in appearance. No renal lesion is identified. No calculi are seen in the kidneys or ureters. There is no hydronephrosis or hydroureter. Stomach and bowel: There is no evidence for a bowel obstruction, diverticulosis, diverticulitis, colitis, pneumatosis intestinalis, intussusception, volvulus, or perforated viscus. Appendix: Normal. No evidence for appendicitis. PELVIS: Bladder: Unremarkable. No calculi are noted in the bladder. Reproductive: The uterus is retroverted. The ovaries are unremarkable. ABDOMEN and PELVIS: Intraperitoneal space: Normal. No free air. No fluid collection. Bones/joints: The imaged bony structures are intact. There is no suspicious osteolytic or osteoblastic lesion. Soft tissues: Unremarkable. Vasculature: The abdominal aorta is normal in caliber. The celiac artery, superior mesenteric artery, and inferior mesenteric artery are patent. There are 3 main right renal arteries and a single main left renal artery, which are patent. Lymph nodes: Normal. No enlarged lymph nodes. IMPRESSION: 1. No acute findings in the abdomen or pelvis. 2. Hepatomegaly. Electronically signed by: Wander Mckee On 02/10/2018 00:55:41 AM
[2018-02-10] MEDS: CIPROFLOXACIN 400 MG in APPROPRIATE DILUENT 1 EA IV ONE (02:00)
[2018-02-10 02:55] VITALS: BP 107/60
== END 2018-02-10 02:56 | disposition home or self-care (01) ==
LOC: M ED 21:59 → EDBD 21:59 → M ED 02-10 02:56
DX: R50.9 Fever, unspecified (principal); R10.9 Unspecified abdominal pain; Z87.440 Personal history of urinary (tract) infections; Z88.2 Allergy status to sulfonamides; Z88.8 Allergy status to other drugs, medicaments and biological substances; Z91.018 Allergy to other foods
CPT/HCPCS: 74177; 80048; 80076; 81001; 83605; 83690; 84703; 85025; 87040; 87086; 93041; 96374; 96375; 99284; J0744; J2765; Q9967

== ENCOUNTER 2018-02-18 18:22 | Emergency (ER) | payer SELFPAY ==
[~2018-02-18] VITALS: Ht 154.9 cm; Wt 72.3 kg
[2018-02-18] MEDS ORDERED: MACR100C43 PO (20:59)
[2018-02-18 21:04] VITALS: BP 117/74
[2018-02-18] MEDS ORDERED: NITROFURANTOIN (MACROBID) 100 MG CAP PO ONE (21:15)
[2018-02-18 22:49] LABS: CHLAMYDIA DNA AMPLIFICATION NEGATIVE (NEGATIVE); GC DNA AMPLIFICATION NEGATIVE (NEGATIVE)
[2018-02-22] MEDS ORDERED: ACET1TAB55 PO (02:30)
[2018-02-22] MEDS ORDERED: PYRI1TAB5 PO (04:50)
== END 2018-02-18 21:21 | disposition home or self-care (01) ==
LOC: M ED 18:22
DX: N30.01 Acute cystitis with hematuria (principal)

== ENCOUNTER → 2018-02-25 | Outpatient (REF) | payer OTHER ==
[~2018-02-25] MED LIST changes: +ACET1TAB55 PO; +MACR100C43 PO
[2018-02-25 22:05] LABS: AMORPHOUS SEDIMENT SMALL (NEGATIVE); APPEARANCE, URINE HAZY (CLEAR); BACTERIA, URINE AUTO 1+ (NEGATIVE); BILIRUBIN, URINE AUTO NEGATIVE (NEGATIVE); BLOOD, URINE BLOOD NEGATIVE (NEGATIVE); COLOR, URINE AMBER (YELLOW); GLUCOSE, URINE (UA) AUTO NEGATIVE (NEGATIVE); KETONE, URINE AUTO TRACE mg/dL (NEGATIVE); LEUKOCYTE ESTERASE, URINE AUTO NEGATIVE (NEGATIVE); MUCUS, URINE SMALL (NEGATIVE); NITRITE, URINE AUTO POSITIVE (NEGATIVE); PROTEIN, URINE AUTO NEGATIVE (NEGATIVE); RBC, URINE AUTO 2 /HPF (0-3); SPECIFIC GRAVITY URINE AUTO 1.018 (1.002-1.035); SQUAMOUS EPITHELIAL CELL UR AU 2 /HPF (0-6); WBC, URINE AUTO 0 /HPF (0-3)
== END ==
LOC: M SMT 17:25
PROVIDERS: ATTEND Nurse Practitioner Women's Health
DX: R30.0 Dysuria (principal)

== ENCOUNTER 2018-03-09 14:19 | Emergency (ER) | payer MEDICAID, OTHER ==
[~2018-03-09] VITALS: Ht 154.9 cm; Wt 68.2 kg
[2018-03-09 14:25] VITALS: BP 126/82
[2018-03-09] MEDS ORDERED: NS 1,000 ML IV ONE (14:45)
[2018-03-09 14:47] LABS: BASO % 0.4 % (0.0-1.0); EOS # 0.1 10^3/uL (0.0-0.50); EOS % 1.8 % (0.0-3.0); HEMATOCRIT 35.7 % (36.0-47.0); HEMOGLOBIN 11.9 g/dl (12.0-15.5); LYMPH # 1.7 10^3/uL (1.5-6.5); LYMPH % 23.7 % (24.0-44.0); MEAN CORPUSCULAR HEMOGLOBIN 30.7 pg (27.0-33.0); MEAN CORPUSCULAR HGB CONC 33.3 g/dl (32.0-36.5); MONO # 0.6 10^3/uL (0.0-0.8); MONO % 8.4 % (0.0-5.0); NEUTROPHILS # 4.7 10^3/uL (1.8-7.7); NEUTROPHILS % 65.4 % (36.0-66.0); PLATELET COUNT, AUTOMATED 272 10^3/uL (150-450); RED BLOOD COUNT 3.88 10^6/uL (4.00-5.40); WHITE BLOOD COUNT 7.1 10^3/uL (4.0-10.0)
[2018-03-09 14:57] LABS: HCG, SERUM QUALITATIVE NEGATIVE (NEGATIVE)
[2018-03-09 15:02] LABS: BILIRUBIN, URINE MANUAL OBSCURED (NEGATIVE); GLUCOSE, URINE (UA) MANUAL NEGATIVE (NEGATIVE); KETONE, URINE MANUAL NEGATIVE (NEGATIVE); UROBILINOGEN, URINE MANUAL OBSCURED mg/dl (NORMAL)
[2018-03-09 15:05] LABS: ALT/SGPT 16 U/L (12-78); BILIRUBIN,DIRECT 0.2 MG/DL (0.0-0.2); BILIRUBIN,TOTAL 0.8 MG/DL (0.2-1.0); BLOOD UREA NITROGEN 9 MG/DL (7-18); CALCIUM LEVEL 8.7 MG/DL (8.5-10.1); CARBON DIOXIDE LEVEL 24 MEQ/L (21-32); CHLORIDE LEVEL 105 MEQ/L (98-107); GLOMERULAR FILTRATION RATE > 60.0 (>60); GLUCOSE, FASTING 90 MG/DL (70-100); POTASSIUM SERUM 3.3 MEQ/L (3.5-5.1); SODIUM LEVEL 139 MEQ/L (136-145); TOTAL PROTEIN 7.7 GM/DL (6.4-8.2)
[2018-03-09 15:06] LABS: ALBUMIN 4.3 GM/DL (3.2-5.2); LIPASE 128 U/L (73-393)
[2018-03-09 15:13] LABS: BACTERIA, URINE MOD AMOUNT; HYALINE CAST, URINE NONE SEEN /lpf (0-1); RBC, URINE 15-20 /hpf (0-3); SQUAMOUS EPITHELIAL CELL URINE SMALL AMOUNT /hpf (SMALL AMT)
[2018-03-09] MEDS ORDERED: KETOROLAC 30 MG/ML VIAL (J1885) IV ONE (15:15)
[2018-03-09] MEDS ORDERED: MORPHINE 4 MG/ML 1ML VIAL/SYRINGE (J2270) IV ONE (16:15)
[2018-03-09] MEDS ORDERED: POTASSIUM CHLORIDE 10 MEQ SR TABLET PO ONE (16:15)
[2018-03-09] MEDS ORDERED: CIPROFLOXACIN 400 MG in APPROPRIATE DILUENT 1 EA IV ONE (16:30)
[2018-03-09 16:35] LABS: CHLAMYDIA DNA AMPLIFICATION NEGATIVE (NEGATIVE); GC DNA AMPLIFICATION NEGATIVE (NEGATIVE)
[2018-03-09] MEDS ORDERED: CIPR-249 PO (16:52)
[2018-03-09] MEDS ORDERED: NORC1TAB4 PO (18:10)
--- NOTE | 2018-03-10 07:58 | REP ---
CT ABDOMEN PELVIS WITHOUT CONTRAST: 03/09/2018 TECHNIQUE: Noncontrast protocol was utilized with coronal and sagittal reconstructions. COMPARISON: Noncontrast CT 02/09/2018. CLINICAL HISTORY: Right flank pain. FINDINGS: CT ABDOMEN: Lung bases clear. Heart not enlarged. There is no pericardial thickening or effusion. I see no hiatal hernia. Right lobe of the liver is mildly enlarged with an 18 cm vertical diameter. Left levels also mildly prominent with no contour abnormality, mass, ductal dilatation, cyst or perihepatic ascites. The pancreas is unremarkable. Gallbladder shows no definite calcified stone or mass. There may be a tiny amount of dependent sludge. Spleen not enlarged showing no focal lesion. Kidneys show no stone, mass, cyst or perinephric fluid. There is no hydronephrosis or hydroureter with the ureters followed to the bladder. No stone along their course. Aorta normal. No periaortic or retroperitoneal lymphadenopathy. Stomach unremarkable. Small bowel loops and colon in the abdomen proper are unremarkable. Lung window review of CT abdomen and pelvis slices shows no perforation or free air. Bone windows show lumbar and lower thoracic vertebral levels, their posterior elements and visualized ribs all intact. CT PELVIS: Sacrum, pelvis, hips and ischium are unremarkable. SI joints intact. No destructive lesion or fracture. There is no distal ureteral dilatation or stone in the pelvis. Bladder partially filled but without wall thickening mass or stone. Small bowel loops in the upper and lower pelvis are without dilatation. Stool and gas are scattered in the colon from cecum to rectosigmoid without dilated loop, air-fluid level, mass, colitis, diverticulitis or stricture. The uterus is mildly retroverted. There is no adnexal mass with symmetric ovaries. No pelvic free fluid or adenopathy. No ventral or inguinal hernia. IMPRESSION: 1. There is no renal bladder stone. I see no hydronephrosis or hydroureter. 2. Perinephric stranding, periureteral edema. 3. Mild hepatomegaly with 18 cm vertical diameter of the right hepatic lobe in the midclavicular line. No focal liver lesions. The other solid organs in the upper abdomen are unremarkable. The gallbladder may have a tiny amount of sludge but there is no calcified stone is seen. 4. The small bowel loops, colon, stomach and pericecal region are all unremarkable. No evidence of acute inflammatory process. No ventral or inguinal hernia. Negative exam. Electronically Signed by Catarino Valverde MD 03/10/2018 01:03 P
== END 2018-03-09 18:29 | disposition home or self-care (01) ==
LOC: EDBD 14:19 → M ED 14:19
DX: N12 Tubulo-interstitial nephritis, not specified as acute or chronic (principal); Z88.2 Allergy status to sulfonamides; Z88.8 Allergy status to other drugs, medicaments and biological substances; Z91.018 Allergy to other foods
CPT/HCPCS: 36415; 74176; 80048; 80076; 81000; 83690; 84703; 85025; 87040; 87088; 87210; 87491; 87591; 93041; 96361; 96365; 96366; 96375; 99284; J0744; J1885; J2270

== ENCOUNTER 2018-03-11 13:41 | Emergency (ER) | payer MEDICAID ==
[~2018-03-11] VITALS: Ht 154.9 cm; Wt 68.2 kg
[~2018-03-11 13:41] MED LIST changes: +NORC1TAB4 PO
[2018-03-11] MEDS ORDERED: MORPHINE 4 MG/ML 1ML VIAL/SYRINGE (J2270) IV PRN (17:15)
[2018-03-11] MEDS ORDERED: NS 1,000 ML IV ONE (17:15)
[2018-03-11] MEDS ORDERED: ONDANSETRON 4MG/2ML VIAL (J2405) IV ONE (17:15)
[2018-03-11 17:36] LABS: BASO % 0.4 % (0.0-1.0); EOS # 0.1 10^3/uL (0.0-0.50); EOS % 1.7 % (0.0-3.0); HEMATOCRIT 33.2 % (36.0-47.0); HEMOGLOBIN 11.1 g/dl (12.0-15.5); MEAN CORPUSCULAR HEMOGLOBIN 31.1 pg (27.0-33.0); MEAN CORPUSCULAR HGB CONC 33.4 g/dl (32.0-36.5); MONO # 0.4 10^3/uL (0.0-0.8); MONO % 5.9 % (0.0-5.0); NEUTROPHILS # 4.7 10^3/uL (1.8-7.7); NEUTROPHILS % 64.9 % (36.0-66.0); PLATELET COUNT, AUTOMATED 269 10^3/uL (150-450); RED BLOOD COUNT 3.57 10^6/uL (4.00-5.40); WHITE BLOOD COUNT 7.3 10^3/uL (4.0-10.0)
[2018-03-11 17:50] LABS: URINE PREG TEST NEGATIVE (NEGATIVE)
[2018-03-11 18:10] LABS: ALBUMIN 4.4 GM/DL (3.2-5.2); ALT/SGPT 14 U/L (12-78); BILIRUBIN,DIRECT 0.3 MG/DL (0.0-0.2); BILIRUBIN,TOTAL 1.1 MG/DL (0.2-1.0); BLOOD UREA NITROGEN 7 MG/DL (7-18); CARBON DIOXIDE LEVEL 22 MEQ/L (21-32); CHLORIDE LEVEL 105 MEQ/L (98-107); CREATININE FOR GFR 0.58 MG/DL (0.55-1.30); GLOMERULAR FILTRATION RATE > 60.0 (>60); GLUCOSE, FASTING 81 MG/DL (70-100); LIPASE 103 U/L (73-393); POTASSIUM SERUM 3.4 MEQ/L (3.5-5.1); SODIUM LEVEL 139 MEQ/L (136-145); TOTAL PROTEIN 7.4 GM/DL (6.4-8.2)
[2018-03-11] MEDS ORDERED: ISOVUE-370 76% 100ML VIAL (Q9967) As Ordered ONE (18:27)
--- NOTE | 2018-03-11 18:49 | REP ---
CHEST, TWO VIEWS: There is no evidence of acute infiltrate. No pleural effusion is seen. The heart is normal in size. The mediastinal silhouette is unremarkable. The visualized osseous structures are intact. IMPRESSION: No acute pulmonary disease. Electronically Signed by Jose Miguel Moreno MD 03/11/2018 07:30 P
[2018-03-11] MEDS ORDERED: NORCOTAB PO (20:52)
[2018-03-11] MEDS ORDERED: AMOX500C PO (20:52)
[2018-03-11 21:15] VITALS: BP 116/76
== END 2018-03-11 21:10 | disposition home or self-care (01) ==
LOC: M ED 13:41
DX: N83.201 Unspecified ovarian cyst, right side (principal); N30.90 Cystitis, unspecified without hematuria; Z88.2 Allergy status to sulfonamides; Z91.018 Allergy to other foods; Z79.2 Long term (current) use of antibiotics
CPT/HCPCS: 71046; 74177; 80048; 80076; 81001; 83605; 83690; 84703; 85025; 87086; 96374; 96375; 99284; J2270; J2405; Q9967

== ENCOUNTER → 2018-03-16 | Outpatient (CLI) | payer MEDICAID ==
[~2018-03-16] MED LIST changes: +AMOX500C PO; +NORCOTAB PO; +TAMI30CA PO
[2018-03-16 10:43] LABS: HEMATOCRIT 35.7 % (36.0-47.0); HEMOGLOBIN 11.6 g/dl (12.0-15.5); MEAN CORPUSCULAR HEMOGLOBIN 31.4 pg (27.0-33.0); MEAN CORPUSCULAR HGB CONC 32.5 g/dl (32.0-36.5); MEAN CORPUSCULAR VOLUME 96.7 fl (80.0-96.0); PLATELET COUNT, AUTOMATED 266 10^3/uL (150-450); RED BLOOD COUNT 3.69 10^6/uL (4.00-5.40)
--- NOTE | 2018-03-16 10:59 | REP ---
Clinical: Lumbago with right-sided sciatica . Technique: AP, lateral, bilateral oblique, and coned-down views. Findings: Alignment and lordosis is maintained. The vertebral bodies including transverse process and spinous processes are intact and normal. There is no evidence for acute fracture / compression injury or subluxation. No evidence for spondylolysis or spondylolisthesis. No significant degenerative change is noted. Impression: Normal lumbosacral spine radiograph series. Electronically Signed by José Miguel Moreno MD 03/16/2018 10:51 A
[2018-03-16 11:12] LABS: ALBUMIN 4.9 GM/DL (3.2-5.2); ALT/SGPT 17 U/L (12-78); BILIRUBIN,TOTAL 1.3 MG/DL (0.2-1.0); BLOOD UREA NITROGEN 8 MG/DL (7-18); CALCIUM LEVEL 9.2 MG/DL (8.5-10.1); CARBON DIOXIDE LEVEL 22 MEQ/L (21-32); CHLORIDE LEVEL 106 MEQ/L (98-107); CHOLESTEROL LEVEL 123 MG/DL (<200); CREATININE FOR GFR 0.71 MG/DL (0.55-1.30); FERRITIN 117 NG/ML (8-252); FREE T4 1.33 NG/DL (0.76-1.46); GLOMERULAR FILTRATION RATE > 60.0 (>60); GLUCOSE, FASTING 84 MG/DL (70-100); HDL CHOLESTEROL 49 MG/DL (>40); IRON (FE) 151 UG/DL (50-170); LDL CHOLESTEROL 62 MG/DL (<100); NON-HDL-C 74 MG/DL; PERCENT SATURATION 47.9 % (13.2-45.0); SODIUM LEVEL 141 MEQ/L (136-145); THYROID STIMULATING HORMONE 0.875 uIU/ML (0.358-3.740); TOTAL IRON BINDING CAPACITY 315 UG/DL (250-450); TOTAL PROTEIN 8.1 GM/DL (6.4-8.2); TRIGLYCERIDES LEVEL 61 MG/DL (<150)
[2018-03-17 09:52] LABS: FOLATE > 24.0 NG/ML
[2018-03-18 07:33] LABS: VITAMIN B12 LEVEL 532 PG/ML (232-1245)
== END ==
LOC: M LAB 10:21
PROVIDERS: ATTEND Physician Assistant
DX: D64.9 Anemia, unspecified (principal); M54.41 Lumbago with sciatica, right side

== ENCOUNTER 2018-03-18 14:11 | Emergency (ER) | payer MEDICAID ==
[~2018-03-18] VITALS: Ht 154.9 cm; Wt 68.2 kg
[~2018-03-18 14:11] MED LIST changes: -TAMI30CA PO
[2018-03-18] MEDS ORDERED: TAMI30CA PO (14:25)
[2018-03-18 16:30] VITALS: BP 111/64
[2018-03-18 16:38] LABS: BASO % 0.6 % (0.0-1.0); EOS # 0.1 10^3/uL (0.0-0.50); EOS % 1.8 % (0.0-3.0); HEMOGLOBIN 10.9 g/dl (12.0-15.5); LYMPH # 2.1 10^3/uL (1.5-6.5); LYMPH % 30.2 % (24.0-44.0); MEAN CORPUSCULAR HEMOGLOBIN 31.9 pg (27.0-33.0); MEAN CORPUSCULAR VOLUME 96.5 fl (80.0-96.0); MONO # 0.5 10^3/uL (0.0-0.8); MONO % 6.8 % (0.0-5.0); NEUTROPHILS # 4.1 10^3/uL (1.8-7.7); NEUTROPHILS % 60.5 % (36.0-66.0); PLATELET COUNT, AUTOMATED 274 10^3/uL (150-450); RED BLOOD COUNT 3.42 10^6/uL (4.00-5.40); WHITE BLOOD COUNT 6.8 10^3/uL (4.0-10.0)
[2018-03-18] MEDS: IBUPROFEN 600 MG TAB PO ONE (16:41)
[2018-03-18 16:51] LABS: INR 1.05; PROTHROMBIN TIME 13.8 SECONDS (12.1-14.4)
[2018-03-18 16:52] LABS: PARTIAL THROMBOPLASTIN TIME 28.4 SECONDS (25.4-37.6)
[2018-03-18 17:24] LABS: ALBUMIN 4.2 GM/DL (3.2-5.2); ALT/SGPT 16 U/L (12-78); BILIRUBIN,DIRECT 0.2 MG/DL (0.0-0.2); BILIRUBIN,TOTAL 0.6 MG/DL (0.2-1.0); BLOOD UREA NITROGEN 9 MG/DL (7-18); CALCIUM LEVEL 8.9 MG/DL (8.5-10.1); CARBON DIOXIDE LEVEL 24 MEQ/L (21-32); CHLORIDE LEVEL 109 MEQ/L (98-107); CK-MB VALUE MASS < 1.0 NG/ML (<3.6); CPK CREATINE PHOSPHOKINASE 49 U/L (26-192); CREATININE FOR GFR 0.62 MG/DL (0.55-1.30); FREE T4 1.12 NG/DL (0.76-1.46); GLOMERULAR FILTRATION RATE > 60.0 (>60); GLUCOSE, FASTING 86 MG/DL (70-100); LIPASE 188 U/L (73-393); MB/CK RELATIVE INDEX 2.04 (< OR =4); POTASSIUM SERUM 3.6 MEQ/L (3.5-5.1); SODIUM LEVEL 141 MEQ/L (136-145); TOTAL PROTEIN 7.4 GM/DL (6.4-8.2); TROPONIN I < 0.02 NG/ML (< 0.10)
[2018-03-18] MEDS ORDERED: ISOVUE-370 76% 100ML VIAL (Q9967) As Ordered ONE (17:43)
--- NOTE | 2018-03-18 18:09 | REP ---
CT of the chest with IV contrast, CT pulmonary angiography: Comparison is a 11/12/2009. There are no emboli in the pulmonary trunk or central pulmonary arteries. There are no emboli in the lobe or segment branches. There are no infiltrates or pleural effusions. There are no masses. There is no mediastinal, hilar or axillary lymph node enlargement. The thoracic aorta is unremarkable. The cardiac size is normal. The visualized upper abdominal contents are unremarkable. Impression: There are no pulmonary emboli. Otherwise, negative CT study of the chest. No interval change. Electronically Signed by Jose Miguel Hager MD 03/18/2018 06:00 P
--- NOTE | 2018-03-18 21:22 | ECGEPIP ---
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
== END 2018-03-18 18:55 | disposition home or self-care (01) ==
LOC: EDBD 14:11 → M ED 14:11
DX: R00.2 Palpitations (principal)
CPT/HCPCS: 71275; 80048; 80076; 82550; 82553; 83690; 84439; 84443; 85025; 85610; 85730; 93005; 93041; 94760; 99285; Q9967

== ENCOUNTER → 2018-03-21 | Outpatient (REF) | payer MEDICAID ==
[~2018-03-21] MED LIST changes: +TAMI30CA PO
== END ==
LOC: M SFHCPLAZ 15:11
PROVIDERS: ATTEND Physician Assistant
DX: D53.9 Nutritional anemia, unspecified (principal); D64.9 Anemia, unspecified

== ENCOUNTER 2018-05-16 18:40 | Emergency (ER) | payer OTHER ==
[~2018-05-16] VITALS: Ht 154.9 cm; Wt 70.5 kg
[~2018-05-16 18:40] MED LIST changes: +HYDR-3715 PO; -NORC1TAB4 PO; +NORC1TAB7 PO; -NORCOTAB PO; +PANT40TA3 PO
[2018-05-16] MEDS ORDERED: CLOT10TR PO (19:46)
[2018-05-16 19:58] VITALS: BP 120/75
== END 2018-05-16 20:06 | disposition home or self-care (01) ==
LOC: M ED 18:40
DX: B37.0 Candidal stomatitis (principal); Z88.8 Allergy status to other drugs, medicaments and biological substances; Z91.018 Allergy to other foods

== ENCOUNTER 2018-06-01 08:19 | Emergency (ER) | payer OTHER ==
[~2018-06-01] VITALS: Ht 154.9 cm; Wt 68.2 kg
[~2018-06-01 08:19] MED LIST changes: +CLOT10TR PO
[2018-06-01] MEDS ORDERED: FLUC100T PO (08:23)
[2018-06-01] MEDS: IBUPROFEN 800 MG TAB PO ONE (08:54)
[2018-06-01 09:13] LABS: MONO SCRN NEGATIVE (NEGATIVE)
[2018-06-01] MEDS ORDERED: PRIL20TA2 PO (10:19)
[2018-06-01] MEDS ORDERED: REGL10TA6 PO (10:19)
[2018-06-01 10:25] VITALS: BP 118/78
== END 2018-06-01 10:31 | disposition home or self-care (01) ==
LOC: M ED 08:19
DX: R13.10 Dysphagia, unspecified (principal); Z79.2 Long term (current) use of antibiotics; Z91.018 Allergy to other foods; Z88.1 Allergy status to other antibiotic agents; Z88.2 Allergy status to sulfonamides

== ENCOUNTER → 2018-09-23 | Outpatient (REF) | payer OTHER ==
[~2018-09-23] MED LIST changes: +ACYC400T PO; +AMOX875T2 PO; +AZO1CHW PO; +FLUC100T PO; +MULTTAB24 PO; +PRIL20TA2 PO; +REGL10TA6 PO
[2018-09-23 13:07] LABS: BASO % 0.5 % (0.0-1.0); EOS # 0.2 10^3/uL (0.0-0.50); EOS % 2.2 % (0.0-3.0); HEMATOCRIT 42.3 % (36.0-47.0); HEMOGLOBIN 13.9 g/dl (12.0-15.5); LYMPH # 2.1 10^3/uL (1.5-6.5); LYMPH % 28.5 % (24.0-44.0); MEAN CORPUSCULAR HGB CONC 32.9 g/dl (32.0-36.5); MEAN CORPUSCULAR VOLUME 91.2 fl (80.0-96.0); MONO # 0.7 10^3/uL (0.0-0.8); MONO % 9.2 % (0.0-5.0); NEUTROPHILS # 4.3 10^3/uL (1.8-7.7); NEUTROPHILS % 59.3 % (36.0-66.0); PLATELET COUNT, AUTOMATED 246 10^3/uL (150-450); RED BLOOD COUNT 4.64 10^6/uL (4.00-5.40); WHITE BLOOD COUNT 7.3 10^3/uL (4.0-10.0)
== END ==
LOC: M SFHCPLAZ 10:12
PROVIDERS: ATTEND Nurse Practitioner Family
DX: D64.9 Anemia, unspecified (principal)

== ENCOUNTER → 2018-10-23 | Outpatient (CLI) | payer OTHER ==
[~2018-10-23] MED LIST changes: +CARB20TA PO
[2018-10-23 20:29] LABS: BASO % 0.4 % (0.0-1.0); EOS # 0.1 10^3/uL (0.0-0.5); EOS % 1.4 % (0.0-3.0); HEMATOCRIT 40.6 % (36.0-47.0); HEMOGLOBIN 13.7 g/dl (12.0-15.5); LYMPH # 2.1 10^3/uL (1.5-5.0); LYMPH % 30.4 % (24.0-44.0); MEAN CORPUSCULAR HEMOGLOBIN 31.1 pg (27.0-33.0); MEAN CORPUSCULAR HGB CONC 33.7 g/dl (32.0-36.5); MEAN CORPUSCULAR VOLUME 92.1 fl (80.0-96.0); MONO # 0.6 10^3/uL (0.0-0.8); MONO % 8.3 % (0.0-5.0); NEUTROPHILS # 4.1 10^3/uL (1.5-8.5); NEUTROPHILS % 59.2 % (36.0-66.0); PLATELET COUNT, AUTOMATED 222 10^3/uL (150-450); RED BLOOD COUNT 4.41 10^6/uL (4.00-5.40); WHITE BLOOD COUNT 6.9 10^3/uL (4.0-10.0)
[2018-10-23 20:50] LABS: ERYTHROCYTE SEDIMENTATION RATE 11 mm/hr (0-20)
[2018-10-23 21:08] LABS: ALT/SGPT 19 U/L (12-78); BILIRUBIN,TOTAL 0.2 MG/DL (0.2-1.0); BLOOD UREA NITROGEN 9 MG/DL (7-18); CALCIUM LEVEL 9.1 MG/DL (8.5-10.1); CARBON DIOXIDE LEVEL 27 MEQ/L (21-32); CHLORIDE LEVEL 106 MEQ/L (98-107); CREATININE FOR GFR 0.63 MG/DL (0.55-1.30); FREE T4 0.86 NG/DL (0.76-1.46); GLOMERULAR FILTRATION RATE > 60.0 (>60); GLUCOSE, FASTING 90 MG/DL (70-100); POTASSIUM SERUM 4.1 MEQ/L (3.5-5.1); SODIUM LEVEL 140 MEQ/L (136-145); TOTAL PROTEIN 7.5 GM/DL (6.4-8.2)
== END ==
LOC: M WUC 16:54
PROVIDERS: ATTEND Physician Assistant
DX: J01.10 Acute frontal sinusitis, unspecified (principal); H60.313 Diffuse otitis externa, bilateral

== ENCOUNTER 2018-10-24 15:24 | Emergency (ER) | payer OTHER ==
[~2018-10-24] VITALS: Ht 154.9 cm; Wt 76.0 kg
[~2018-10-24 15:24] MED LIST changes: -CARB20TA PO
[2018-10-24] MEDS ORDERED: carBAMazepine 200 MG TAB PO ONE (19:00)
--- NOTE | 2018-10-24 19:36 | ECGEPIP ---
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
[2018-10-24 19:53] VITALS: BP 121/62
--- NOTE | 2018-10-24 20:02 | REPVR ---
EXAM: MR Angiogram Head Without Contrast, Arteries EXAM DATE/TIME: 10/24/2018 4:18 PM CLINICAL HISTORY: 28 years old, female; Weakness; Additional info: Facial pain/weakness TECHNIQUE: Imaging protocol: MR angiogram head without contrast. Exam focused on the arteries. COMPARISON: No relevant prior studies available. FINDINGS: Right internal carotid artery: Unremarkable. Intracranial segment is patent with no significant stenosis. No aneurysm. Right anterior cerebral artery: Unremarkable. No occlusion or significant stenosis. No aneurysm. Right middle cerebral artery: Unremarkable. No occlusion or significant stenosis. No aneurysm. Right posterior cerebral artery: Unremarkable. No occlusion or significant stenosis. No aneurysm. Right vertebral artery: Unremarkable. No occlusion or significant stenosis. No aneurysm. Left internal carotid artery: Unremarkable. Intracranial segment is patent with no significant stenosis. No aneurysm. Left anterior cerebral artery: Unremarkable. No occlusion or significant stenosis. No aneurysm. Left middle cerebral artery: Unremarkable. No occlusion or significant stenosis. No aneurysm. Left posterior cerebral artery: Unremarkable. No occlusion or significant stenosis. No aneurysm. Left vertebral artery: Unremarkable. No occlusion or significant stenosis. No aneurysm. Basilar artery: Unremarkable. No occlusion or significant stenosis. No aneurysm. IMPRESSION: No acute findings. Electronically signed by: Boris Franks On 10/24/2018 20:01:43 PM
--- NOTE | 2018-10-24 20:03 | REPVR ---
EXAM: MR Head Without Contrast EXAM DATE/TIME: 10/24/2018 4:18 PM CLINICAL HISTORY: 28 years old, female; Weakness, facial; Additional info: Facial pain/weakness TECHNIQUE: Imaging protocol: MR of the head without contrast. COMPARISON: No relevant prior studies available. FINDINGS: Brain: Normal. No acute infarct. No hemorrhage. No significant white matter disease. No edema. Ventricles: Normal. No ventriculomegaly. Bones/joints: Unremarkable. Soft tissues: Normal. Sinuses: Normal as visualized. No acute sinusitis. Mastoid air cells: Normal as visualized. No mastoid effusion. Orbits: Unremarkable. IMPRESSION: No acute findings. Electronically signed by: Boris Franks On 10/24/2018 20:03:05 PM
[2018-10-24] MEDS ORDERED: CARB20TA PO (20:28)
== END 2018-10-24 20:42 | disposition home or self-care (01) ==
LOC: M ED 15:24
DX: G50.1 Atypical facial pain (principal); I45.10 Unspecified right bundle-branch block; F32.9 Major depressive disorder, single episode, unspecified; Z79.899 Other long term (current) drug therapy; Z88.2 Allergy status to sulfonamides; Z88.8 Allergy status to other drugs, medicaments and biological substances; Z91.018 Allergy to other foods

== ENCOUNTER 2018-11-17 10:04 | Emergency (ER) | payer OTHER ==
[~2018-11-17] VITALS: Ht 154.9 cm; Wt 76.8 kg
[~2018-11-17 10:04] MED LIST changes: +CARB20TA PO
[2018-11-17] MEDS ORDERED: PRED20TA (10:12)
[2018-11-17] MEDS ORDERED: AMIT10TA (10:12)
[2018-11-17] MEDS ORDERED: DOXY100C37 (10:12)
[2018-11-17] MEDS ORDERED: GABA-843 (10:12)
[2018-11-17 12:08] LABS: BASO # 0.1 10^3/uL (0.0-0.2); BASO % 1.2 % (0.0-1.0); EOS # 0.2 10^3/uL (0.0-0.5); EOS % 2.7 % (0.0-3.0); HEMOGLOBIN 14.3 g/dl (12.0-15.5); LYMPH # 1.7 10^3/uL (1.5-5.0); LYMPH % 30.2 % (24.0-44.0); MEAN CORPUSCULAR HEMOGLOBIN 30.4 pg (27.0-33.0); MEAN CORPUSCULAR VOLUME 89.4 fl (80.0-96.0); MONO # 0.4 10^3/uL (0.0-0.8); MONO % 6.9 % (0.0-5.0); NEUTROPHILS # 3.3 10^3/uL (1.5-8.5); NEUTROPHILS % 58.8 % (36.0-66.0); PLATELET COUNT, AUTOMATED 285 10^3/uL (150-450); WHITE BLOOD COUNT 5.7 10^3/uL (4.0-10.0)
--- NOTE | 2018-11-17 13:14 | REP ---
REASON: Facial pain. PRIORS: None. TECHNIQUE: 4.5 mm contiguous transaxial sections were obtained from the skull base to the cerebral convexities with thin cuts through the posterior fossa without the administration of intravenous contrast. FINDINGS: The ventricles and sulci are consistent with the patient's age. There are no extra-axial fluid collections. There is no mass effect. The deep cerebral white matter is consistent with the patient's age. The orbital and petrous structures , cerebellopontine angles, and posterior fossa are unremarkable. The sella turcica, cavernous, and paracavernous structures are essentially unremarkable. The visualized portions of the paranasal sinuses and mastoid air cells are clear. Images of the skull base show no gross abnormality. IMPRESSION: Essentially unremarkable CT examination of the brain. Electronically Signed by Donovan Ibrahim DO 11/17/2018 02:39 P
[2018-11-17 13:52] VITALS: BP 124/81
[2018-11-19 00:07] LABS: Lyme Disease IgG/IgM Antibodie <0.91 ISR (0.00-0.90); Lyme Disease IgM Ab Quantitati <0.80 index (0.00-0.79)
== END 2018-11-17 13:54 | disposition home or self-care (01) ==
LOC: M ED 10:04
DX: R42 Dizziness and giddiness (principal); F19.239 Other psychoactive substance dependence with withdrawal, unspecified; Z79.899 Other long term (current) drug therapy

== ENCOUNTER 2018-12-07 02:05 | Emergency (ER) | payer OTHER ==
[~2018-12-07] VITALS: Ht 154.9 cm; Wt 72.7 kg
[~2018-12-07 02:05] MED LIST changes: +AMIT10TA; +DOXY100C37; +GABA-843; +PRED20TA
[2018-12-07] MEDS ORDERED: ALL10TAB29 (02:13)
[2018-12-07] MEDS ORDERED: KETOROLAC 60 MG/2 ML VIAL (J1885) IM ONE (04:45)
[2018-12-07 05:05] VITALS: BP 118/74
== END 2018-12-07 05:07 | disposition home or self-care (01) ==
LOC: M ED 02:05
DX: H92.02 Otalgia, left ear (principal); G50.0 Trigeminal neuralgia; Z79.899 Other long term (current) drug therapy; Z88.2 Allergy status to sulfonamides; Z88.8 Allergy status to other drugs, medicaments and biological substances; Z91.018 Allergy to other foods
CPT/HCPCS: 96372; 99283; J1885

== ENCOUNTER 2019-01-01 10:19 | Emergency (ER) | payer OTHER ==
[~2019-01-01] VITALS: Ht 154.9 cm; Wt 77.3 kg
[~2019-01-01 10:19] MED LIST changes: +ALL10TAB29
[2019-01-01 10:21] VITALS: BP 125/73
[2019-01-01] MEDS ORDERED: OMEP-218 (10:28)
[2019-01-01] MEDS ORDERED: CEFD1CAP8 (10:28)
[2019-01-01] MEDS ORDERED: FLUC150T (10:28)
[2019-01-01] MEDS ORDERED: AFRI0.058 (11:39)
[2019-01-01] MEDS ORDERED: DOXY-350 PO (11:39)
[2019-01-01] MEDS ORDERED: BENZ200C70 PO (11:39)
== END 2019-01-01 11:45 | disposition home or self-care (01) ==
LOC: M ED 10:19
DX: J01.90 Acute sinusitis, unspecified (principal); H65.00 Acute serous otitis media, unspecified ear; Z79.899 Other long term (current) drug therapy; Z88.2 Allergy status to sulfonamides; Z88.8 Allergy status to other drugs, medicaments and biological substances; Z91.018 Allergy to other foods

== ENCOUNTER → 2019-08-04 | Outpatient (REF) | payer OTHER ==
[~2019-08-04] MED LIST changes: +ACYC400T; +AFRI0.058; -ALL10TAB29; +AUGM875T28 PO; +BENZ200C70 PO; +CEFD1CAP8; +CETI-24; +CYCL-707 PO; -CYCL10TA PO; +DOXY-350 PO; +FLUC150T; +GABA-282; -GABA-843; +KEFL250C11 PO; +OMEP-218; +PANT40TA29 PO; -PANT40TA3 PO
[2019-08-04 19:32] LABS: HEMATOCRIT 38.7 % (36.0-47.0); MEAN CORPUSCULAR HEMOGLOBIN 30.2 pg (27.0-33.0); MEAN CORPUSCULAR HGB CONC 33.6 g/dl (32.0-36.5); MEAN CORPUSCULAR VOLUME 89.8 fl (80.0-96.0); PLATELET COUNT, AUTOMATED 243 10^3/uL (150-450); RED BLOOD COUNT 4.31 10^6/uL (4.00-5.40); WHITE BLOOD COUNT 7.6 10^3/uL (4.0-10.0)
[2019-08-04 20:19] LABS: HCG, SERUM QUANTITATIVE 100776 MIU/ML
[2019-08-05 08:37] LABS: HEPATITIS B SURFACE ANTIGEN NEGATIVE (NEGATIVE)
[2019-08-05 09:05] LABS: HEPATITIS C VIRUS ABY INDEX 0.3 INDEX (<0.8); HIV 1&2 SCREEN CENTAUR NEGATIVE (NEGATIVE)
== END ==
LOC: M LAB REF 18:01
PROVIDERS: ATTEND Obstetrics & Gynecology
DX: O36.80X0 Pregnancy with inconclusive fetal viability, not applicable or unspecified (principal)

== ENCOUNTER 2019-08-21 10:51 | Emergency (ER) | payer OTHER ==
[~2019-08-21] VITALS: Ht 154.9 cm; Wt 80.1 kg
[~2019-08-21 10:51] MED LIST changes: -ACYC400T; +ALL10TAB29; -AUGM875T28 PO; -CETI-24; -GABA-282; +GABA-843; -KEFL250C11 PO; -PANT40TA29 PO; +PANT40TA3 PO
[2019-08-21] MEDS ORDERED: ACYC400T (10:57)
[2019-08-21] MEDS ORDERED: BOOSTRIX/ADACEL VACCINE (DIPHTH/PERTUSS/ACELL/TETANUS) 0.5ML SYR IM ONE (11:15)
[2019-08-21] MEDS ORDERED: AUGMENTIN 875 MG TAB PO ONE (11:30)
--- NOTE | 2019-08-21 11:49 | REP ---
Clinical: Trauma. Dog bite. Technique: AP and lateral views of the right forearm. Findings: Soft tissue swelling and subcutaneous emphysema in the mid forearm noted. No osseous involvement. No foreign body. Impression: Soft tissue swelling and subcutaneous emphysema. Electronically Signed by José Miguel Moreno MD 08/21/2019 11:40 A
[2019-08-21] MEDS ORDERED: AUGM875T28 PO (12:00)
[2019-08-21] MEDS ORDERED: LIDOCAINE 2% MDV 20ML VIAL SC ONE (12:00)
[2019-08-21 12:49] VITALS: BP 133/83
== END 2019-08-21 13:18 | disposition home or self-care (01) ==
LOC: M ED 10:51
DX: S51.811A Laceration without foreign body of right forearm, initial encounter (principal); W54.0XXA Bitten by dog, initial encounter; Y92.410 Unspecified street and highway as the place of occurrence of the external cause; R56.9 Unspecified convulsions; Z79.899 Other long term (current) drug therapy

== ENCOUNTER 2019-08-30 08:46 | Emergency (ER) | payer OTHER ==
[~2019-08-30] VITALS: Ht 154.9 cm; Wt 80.6 kg
[~2019-08-30 08:46] MED LIST changes: +ACYC400T; +AUGM875T28 PO
[2019-08-30 08:47] VITALS: BP 117/73
== END 2019-08-30 09:39 | disposition home or self-care (01) ==
LOC: M ED 08:46
DX: Z48.02 Encounter for removal of sutures (principal)

== ENCOUNTER → 2019-11-01 | Outpatient (REF) | payer OTHER ==
[~2019-11-01] MED LIST changes: -ALL10TAB29; +CETI-24; +KEFL250C11 PO; +PANT40TA29 PO; -PANT40TA3 PO
== END ==
LOC: M LAB REF 18:25
PROVIDERS: ATTEND Physician Assistant
DX: J02.9 Acute pharyngitis, unspecified (principal)

== ENCOUNTER 2019-11-07 16:13 | Outpatient (CLI) | payer OTHER ==
[~2019-11-07] VITALS: Ht 154.9 cm; Wt 81.7 kg
[~2019-11-07 16:13] MED LIST changes: -KEFL250C11 PO
[2019-11-07 16:35] VITALS: BP 131/82
[2019-11-07] MEDS ORDERED: KEFL250C11 PO (16:43)
[2019-11-07 17:17] LABS: HEMATOCRIT 34.4 % (36.0-47.0); HEMOGLOBIN 11.4 g/dl (12.0-15.5); MEAN CORPUSCULAR HEMOGLOBIN 29.4 pg (27.0-33.0); MEAN CORPUSCULAR HGB CONC 33.1 g/dl (32.0-36.5); MEAN CORPUSCULAR VOLUME 88.7 fl (80.0-96.0); PLATELET COUNT, AUTOMATED 211 10^3/uL (150-450); RED BLOOD COUNT 3.88 10^6/uL (4.00-5.40); WHITE BLOOD COUNT 6.5 10^3/uL (4.0-10.0)
[2019-11-07 17:48] LABS: BLOOD UREA NITROGEN 6 MG/DL (7-18); CALCIUM LEVEL 8.8 MG/DL (8.5-10.1); CARBON DIOXIDE LEVEL 23 MEQ/L (21-32); CHLORIDE LEVEL 107 MEQ/L (98-107); CREATININE FOR GFR 0.45 MG/DL (0.55-1.30); GLOMERULAR FILTRATION RATE > 60.0 (>60); GLUCOSE, FASTING 74 MG/DL (70-100); POTASSIUM SERUM 4.1 MEQ/L (3.5-5.1); SODIUM LEVEL 138 MEQ/L (136-145)
== END 2019-11-07 18:10 | disposition home or self-care (01) ==
LOC: M LDO 16:13
PROVIDERS: ATTEND Specialist
DX: O26.892 Other specified pregnancy related conditions, second trimester (principal); R42 Dizziness and giddiness; Z3A.21 21 weeks gestation of pregnancy

== ENCOUNTER → 2019-12-22 | Outpatient (CLI) | payer OTHER ==
[~2019-12-22] MED LIST changes: +KEFL250C11 PO
[2019-12-22 11:31] LABS: HEMATOCRIT 34.8 % (36.0-47.0); MEAN CORPUSCULAR HEMOGLOBIN 28.3 pg (27.0-33.0); MEAN CORPUSCULAR HGB CONC 31.6 g/dl (32.0-36.5); MEAN CORPUSCULAR VOLUME 89.5 fl (80.0-96.0); PLATELET COUNT, AUTOMATED 240 10^3/uL (150-450); RED BLOOD COUNT 3.89 10^6/uL (4.00-5.40); WHITE BLOOD COUNT 6.9 10^3/uL (4.0-10.0)
== END ==
LOC: M LAB 09:47
PROVIDERS: ATTEND Advanced Practice Midwife
DX: Z34.03 Encounter for supervision of normal first pregnancy, third trimester (principal); Z3A.00 Weeks of gestation of pregnancy not specified

== ENCOUNTER → 2020-02-10 | Outpatient (REF) | payer OTHER | LOC: M LAB REF 12:18 | PROVIDERS: ATTEND Advanced Practice Midwife | DX: Z34.83 Encounter for supervision of other normal pregnancy, third trimester (principal) ==

== ENCOUNTER 2020-03-09 16:08 | Inpatient (IN) | payer OTHER ==
[~2020-03-09] VITALS: Ht 154.9 cm; Wt 95.0 kg
[2020-03-09] VITALS (23 sets, daily range): BP systolic 92–138; BP diastolic 55–86
[~2020-03-09 16:08] MED LIST changes: -AMIT10TA; +AMIT10TA7; +GABA-282; -GABA-843
[2020-03-09] MEDS ORDERED: LR 1,000 ML IV SCH (16:38)
[2020-03-09] MEDS ORDERED: OXYTOCIN DRIP 30 UNITS in IV 1 EA IV SCH ×2 (16:45→22:50)
[2020-03-09 17:49] LABS: HEMATOCRIT 37.4 % (36.0-47.0); MEAN CORPUSCULAR HEMOGLOBIN 28.1 pg (27.0-33.0); MEAN CORPUSCULAR HGB CONC 32.1 g/dl (32.0-36.5); MEAN CORPUSCULAR VOLUME 87.6 fl (80.0-96.0); PLATELET COUNT, AUTOMATED 215 10^3/uL (150-450); RED BLOOD COUNT 4.27 10^6/uL (4.00-5.40); WHITE BLOOD COUNT 7.8 10^3/uL (4.0-10.0)
[2020-03-09] MEDS ORDERED: FENTANYL 2MCG/ML ROPIVACAINE 0.2% IN 0.9% NACL 100ML IVBAG As Ordered ONE (21:15)
[2020-03-09] MEDS ORDERED: FENTANYL/ROPIVACAINE/NACL BAG 100 ML EPIDURAL SCH (22:03)
[2020-03-09] MEDS ORDERED: EPIDURAL/PCA KEYS XX PRN (22:03)
[2020-03-09] MEDS ORDERED: diphenhydrAMINE 50MG/ML VIAL (J1200) IV PRN (22:03)
[2020-03-09] MEDS ORDERED: EPIDURAL COMMENT XX SCH (22:03)
[2020-03-09] MEDS ORDERED: ONDANSETRON 4MG/2ML VIAL IV PRN (22:03)
[2020-03-09] MEDS ORDERED: ePHEDrine SULFATE 25 MG/5 ML(5MG/ML) SYRINGE IV PRN (22:03)
[2020-03-09] MEDS ORDERED: LACTATED RINGER'S 1000 ML IV PRN (22:03)
[2020-03-09] MEDS ORDERED: NALOXONE INJ 0.4MG/1ML VIAL (J2310 PER 1MG) IV PRN (22:03)
[2020-03-09] MEDS ORDERED: REFRIGERATOR IV KEYS XX PRN (22:03)
[2020-03-09] MEDS ORDERED: DOCUSATE SODIUM 100MG CAPSULE PO PRN (23:00)
[2020-03-09] MEDS ORDERED: ACETAMINOPHEN TAB 650MG DOSE (2X325MG) PO PRN (23:00)
[2020-03-09] MEDS ORDERED: MEASLES,MUMPS,RUBELLA VACCINE INJ (MMR-II) (90707) SC SCH (23:00)
[2020-03-09] MEDS ORDERED: RHOGAM 300 MCG (1500 IU) INJ (J2790) IM SCH (23:00)
[2020-03-09] MEDS ORDERED: BENZOCAINE 20% HEMORRHOIDAL OINTMENT 28GM TUBE TOP PRN (23:00)
[2020-03-09] MEDS ORDERED: IBUPROFEN 600MG TAB PO PRN (23:00)
[2020-03-09] MEDS ORDERED: METHYLERGONOVINE MALEATE 0.2 MG TAB PO PRN (23:00)
[2020-03-09] MEDS ORDERED: ACETAMINOPHEN 500 MG TAB PO PRN (23:00)
[2020-03-10] MEDS: IBUPROFEN 800 MG TAB PO PRN ×2 (00:17→17:30)
[2020-03-10 00:42] VITALS: BP 131/77
[2020-03-10 05:50] VITALS: BP 120/80
[2020-03-10] MEDS: PRENATAL VITAMINS CHEWABLE TABLET PO SCH (09:34)
[2020-03-10 18:00] VITALS: BP 115/65
[2020-03-11 05:36] VITALS: BP 106/64
[2020-03-11] MEDS: PRENATAL VITAMINS CHEWABLE TABLET PO SCH (07:55)
[2020-03-11] MEDS: IBUPROFEN 800 MG TAB PO PRN (07:55)
[2020-03-11] MEDS ORDERED: INFLUENZA QUADRIVALENT PF VACCINE 0.5ML SYRINGE IM ONE (13:00)
[2020-03-11] MEDS ORDERED: BOOSTRIX/ADACEL VACCINE (DIPHTH/PERTUSS/ACELL/TETANUS) 0.5ML SYR IM ONE (13:00)
--- NOTE | 2020-03-14 13:44 | HPE ---
HISTORY AND PHYSICAL DATE OF ADMISSION: 03/09/2020 SUBJECTIVE: Lucía is a 29-year-old, G5 P 1-0-3-1 at 39 weeks gestation, EDC of 03/16/2020 based on first trimester ultrasound. She presents to Labor and Delivery today following a routine appointment in the office where she was noted to have ruptured membranes and normal show. She does any painful contractions, reports constant pelvic pain and pressure. She reports continued leakage of fluid, some pink, bloody show and the fetus has been active. care at [facility] in the first trimester. course uncomplicated. OBSTETRIC HISTORY: In 2008, first trimester missed . 2009, ectopic . August,, 40 weeks gestation, 8 lb, 13 oz female, vaginal delivery. 2015, first trimester missed . OBSTETRIC LABS: O positive, antibody screen negative, rubella immune. VDRL nonreactive. Urine culture with no growth. Hep B surface antigen negative. HIV negative. Gonorrhea and Chlamydia negative. Gestational diabetic screening normal at 108 and her GBS is negative. PAST MEDICAL HISTORY: 1. Reflux. 2. Seasonal allergies. 3. Herpes simplex. PAST SURGICAL HISTORY: D&C. FAMILY HISTORY: Schizoaffective disorder, myocardial infarction, diabetes. SOCIAL HISTORY: The patient is legally . There is a father of baby involved. He is on his way en route. She denies alcohol and drug use and the patient has never been a smoker. She denies history of any sexually transmitted infections. ALLERGIES: BACTRIM AND CARBAMAZEPINE. CURRENT MEDICATIONS: 1. Acyclovir. 2. vitamin. 3. Cetirizine. 4. Omeprazole. OBJECTIVE: BP 120/84. She is alert and oriented x3. She does not appear uncomfortable. heart rate is 140 with moderate variability, positive accelerations, negative decelerations. There is no pattern of regular contractions. Her abdomen is gravid, cephalic presentation by Don's. Estimated weight 8 lb. Sterile vaginal exam: 3 cm dilated, 80% effaced, -2 station, positive show, clear fluid as well as noted there is a forebag palpated with exam. ASSESSMENT: Intrauterine at 39 weeks. heart rate is category 1 with premature rupture of membranes. PLAN: Admit the patient to labor and delivery, routine lab, clear liquid diet. Plan to start IV Pitocin for labor augmentation. I did review risks, benefits and alternatives with the patient. All of her questions have been answered. She desires an epidural when uncomfortable. I do anticipate active labor and a vaginal delivery. She has been verbally consented for emergency surgery and blood products.
--- NOTE | 2020-04-04 10:17 | DN ---
DELIVERY NOTE DATE OF DELIVERY: 03/09/2020 TIME OF : 2226. GENDER: Male. APGARS: 9 and 9. LACERATIONS: First-degree perineal. ANESTHESIA: Epidural. ESTIMATED BLOOD LOSS: 350 mL. COUNTS: Correct and verified. DESCRIPTION OF DELIVERY: Lucía is now 7, para 2-0-3-2. She underwent induction of labor at 39 weeks when she presented with premature rupture of membranes. She did use an epidural for her labor coping. She pushed to a normal spontaneous vaginal delivery of a live male infant in left occiput anterior (CARMEN) position with restitution to left occiput transverse (LOT) position at 2226. There was a nuchal cord x1 loose, reduced manually at the time of delivery. The 's shoulders delivered spontaneously and the corpus immediately followed. 's mouth and nares were bulb suctioned and he was placed on the maternal abdomen crying and active. Cord was clamped x2 once pulsations ceased and cut by the father of the baby under my direction. Spontaneous expulsion of an intact placenta with three-vessel cord by Restrepo mechanism was at 2230. Uterine hemostasis achieved with IV Pitocin rapid infusion and uterine fundal massage. Estimated blood loss 350 mL. Perineum and vagina inspected noted to have a first-degree perineal laceration that was repaired with 3-0 Vicryl Rapide in the usual fashion. male weighed 7 pounds 6 ounces. 9 and 9. Mom is going to breastfeed her son. At the close of delivery lap counts, needle counts, and instrument counts were correct and verified.
== END 2020-03-11 13:50 | disposition home or self-care (01) | DRG 560 ==
LOC: M LDI 16:08 → M OBS 03-10 00:27
PROVIDERS: ADMIT Obstetrics & Gynecology; ATTEND Advanced Practice Midwife
PROC: 10E0XZZ Delivery of Products of Conception, External Approach (ICD-10-PCS; principal; 2020-03-09)
PROC: 0HQ9XZZ Repair Perineum Skin, External Approach (ICD-10-PCS; 2020-03-09)
PROC: 3E033VJ Introduction of Other Hormone into Peripheral Vein, Percutaneous Approach (ICD-10-PCS; 2020-03-09)
DX: O42.02 Full-term premature rupture of membranes, onset of labor within 24 hours of rupture (principal); Z3A.39 39 weeks gestation of pregnancy; Z37.0 Single live birth; O69.81X0 Labor and delivery complicated by cord around neck, without compression, not applicable or unspecified; O70.0 First degree perineal laceration during delivery

== ENCOUNTER 2020-04-07 16:19 | Emergency (ER) | payer OTHER ==
[~2020-04-07] VITALS: Ht 154.9 cm; Wt 81.8 kg
[~2020-04-07 16:19] MED LIST changes: +AMIT10TA; -AMIT10TA7
--- OUTSIDE RECORDS SUMMARY | 2020-04-07 16:26 | CCD ---
Author Author [facility] Organization [facility] Address Unknown Phone Unavailable Care Team Providers Care Manufacturing Engineering Director Name Role Phone Bryson, Rajinder Squires MD Unavailable Unavailable Bryson, Rajinder Squires MD Unavailable Unavailable Bryson, Rajinder Squires MD Unavailable Unavailable Bryson, Rajinder Squires MD Unavailable Unavailable Bryson, Rajinder Squires MD Unavailable Unavailable Bryson, Rajinder Squires MD Unavailable Unavailable Bryson, Rajinder Squires MD Unavailable Unavailable Bryson, Rajinder Squires MD Unavailable Unavailable Bryson, Rajinder Squires MD Unavailable Unavailable Bryson, Rajinder Squires MD Unavailable Unavailable Bryson, Rajinder Squires MD Unavailable Unavailable Bryson, Rajinder Squires MD Unavailable Unavailable Bryson, Rajinder Squires MD Unavailable Unavailable Bryson, Rajinder Squires MD Unavailable Unavailable Bryson, Rajinder Squires MD Unavailable Unavailable Bryson, Rajinder Squires MD Unavailable Unavailable Bryson, Rajinder Squires MD Unavailable Unavailable Bryson, Rajinder Squires MD Unavailable Unavailable Bryson, Rajinder Squires MD Unavailable Unavailable Bryson, Rajinder Squires MD Unavailable Unavailable Bryson, Rajinder Squires MD Unavailable Unavailable Bryson, Rajinder Squires MD Unavailable Unavailable Bryson, Rajinder Squires MD Unavailable Unavailable Bryson, Rajinder Squires MD Unavailable Unavailable Bryson, Raijnder Squires MD Unavailable Unavailable Bryson, Rajinder Squires MD Unavailable Unavailable Bryson, Rajinder Squires MD Unavailable Unavailable Bryson, Rajinder Squires MD Unavailable Unavailable Bryson, Rajinder Squires MD Unavailable Unavailable Bryson, Rajinder Squires MD Unavailable Unavailable Bryson, Rajinder Squires MD Unavailable Unavailable Bryson, Rajinder Squires MD Unavailable Unavailable Bryson, Rajinder Squires MD Unavailable Unavailable Bryson, Rajinder Squires MD Unavailable Unavailable Bryson, Rajinder Squires MD Unavailable Unavailable Bryson, Rajinder Squires MD Unavailable Unavailable Bryson, Rajinder Squires MD Unavailable Unavailable Bryson, Rajinder Squires MD Unavailable Unavailable Bryson, Rajinder Squires MD Unavailable Unavailable Bryson, Rajinder Squires MD Unavailable Unavailable Bryson, Rajinder Squires MD Unavailable Unavailable Bryson, Rajinder Squires MD Unavailable Unavailable Bryson, Rajinder Squires MD Unavailable Unavailable Bryson, Rajinder Squires MD Unavailable Unavailable Bryson, Rajinder Squires MD Unavailable Unavailable Bryson, Rajinder Squires MD Unavailable Unavailable Bryson, Rajinder Squires MD Unavailable Unavailable Bryson, Rajinder Squires MD Unavailable Unavailable Bryson, Rajinder Squires MD Unavailable Unavailable Bryson, Rajinder Squires MD Unavailable Unavailable Bryson, Rajinder Squires MD Unavailable Unavailable Bryson, Rajinder Squires MD Unavailable Unavailable Bryson, Rajinder Squires MD Unavailable Unavailable Bryson, Rajinder Squires MD Unavailable Unavailable Bryson, Rajinder Squires MD Unavailable Unavailable Bryson, Rajinder Squires MD Unavailable Unavailable Bryson, Rajinder Squires MD Unavailable Unavailable Bryson, Rajinder Squires MD Unavailable Unavailable Bryson, Rajinder Squires MD Unavailable Unavailable Bryson, A Tavia MD Unavailable Unavailable Bryson, A Tavia MD Unavailable Unavailable Bryson, A Tavia MD Unavailable Unavailable Bryson, A Tavia MD Unavailable Unavailable Bryson, A Tavia MD Unavailable Unavailable Bryson, A Tavia MD Unavailable Unavailable Bryson, A Tavia MD Unavailable Unavailable Bryson, A Tavia MD Unavailable Unavailable Bryson, A Tavia MD Unavailable Unavailable Bryson, A Tavia MD Unavailable Unavailable Bryson, A Tavia MD Unavailable Unavailable Bryson, A Tavia MD Unavailable Unavailable Bryson, A Tavia MD Unavailable Unavailable Bryson, A Tavia MD Unavailable Unavailable Bryson, A Tavia MD Unavailable Unavailable Bryson, A Tavia MD Unavailable Unavailable EMERTON, A YOLETTE MD Unavailable Unavailable EMERTON, A YOLETTE MD Unavailable Unavailable EMERTON, A YOLETTE MD Unavailable Unavailable EMERTON, A YOLETTE MD Unavailable Unavailable EMERTON, A YOLETTE MD Unavailable Unavailable EMERTON, A YOLETTE MD Unavailable Unavailable EMERTON, A YOLETTE MD Unavailable Unavailable EMERTON, A YOLETTE MD Unavailable Unavailable EMERTON, A YOLETTE MD Unavailable Unavailable EMERTON, A YOLETTE MD Unavailable Unavailable EMERTON, A YOLETTE MD Unavailable Unavailable EMERTON, A YOLETTE MD Unavailable Unavailable EMERTON, A YOLETTE MD Unavailable Unavailable EMERTON, A YOLETTE MD Unavailable Unavailable EMERTON, A YOLETTE MD Unavailable Unavailable EMERTON, A YOLETTE MD Unavailable Unavailable EMERTON, A YOLETTE MD Unavailable Unavailable EMERTON, A YOLETTE MD Unavailable Unavailable EMERTON, A YOLETTE MD Unavailable Unavailable EMERTON, A YOLETTE MD Unavailable Unavailable EMERTON, A YOLETTE MD Unavailable Unavailable EMERTON, A YOLETTE MD Unavailable Unavailable EMERTON, A YOLETTE MD Unavailable Unavailable EMERTON, A YOLETTE MD Unavailable Unavailable EMERTON, A YOLETTE MD Unavailable Unavailable EMERTON, A YOLETTE MD Unavailable Unavailable EMERTON, A YOLETTE MD Unavailable Unavailable EMERTON, A YOLETTE MD Unavailable Unavailable EMERTON, A YOLETTE MD Unavailable Unavailable EMERTON, A YOLETTE MD Unavailable Unavailable EMERTON, A YOLETTE MD Unavailable Unavailable EMERTON, A YOLETTE MD Unavailable Unavailable EMERTON, A YOLETTE MD Unavailable Unavailable EMERTON, A YOLETTE MD Unavailable Unavailable EMERTON, A YOLETTE MD Unavailable Unavailable EMERTON, A YOLETTE MD Unavailable Unavailable EMERTON, A YOLETTE MD Unavailable Unavailable EMERTON, A YOLETTE MD Unavailable Unavailable EMERTON, A YOLETTE MD Unavailable Unavailable EMERTON, A YOLETTE MD Unavailable Unavailable EMERTON, A YOLETTE MD Unavailable Unavailable EMERTON, A YOLETTE MD Unavailable Unavailable EMERTON, A YOLETTE MD Unavailable Unavailable EMERTON, A YOLETTE MD Unavailable Unavailable EMERTON, A YOLETTE MD Unavailable Unavailable EMERTON, A YOLETTE MD Unavailable Unavailable EMERTON, A YOLETTE MD Unavailable Unavailable EMERTON, A YOLETTE MD Unavailable Unavailable EMERTON, A YOLETTE MD Unavailable Unavailable EMERTON, A YOLETTE MD Unavailable Unavailable EMERTON, A YOLETTE MD Unavailable Unavailable EMERTON, A YOLETTE MD Unavailable Unavailable EMERTON, A YOLETTE MD Unavailable Unavailable EMERTON, A YOLETTE MD Unavailable Unavailable EMERTON, A YOLETTE MD Unavailable Unavailable EMERTON, A YOLETTE MD Unavailable Unavailable EMERTON, A YOLETTE MD Unavailable Unavailable EMERTON, A YOLETTE MD Unavailable Unavailable EMERTON, A YOLETTE MD Unavailable Unavailable EMERTON, A YOLETTE MD Unavailable Unavailable EMERTON, A YOLETTE MD Unavailable Unavailable EMERTON, A YOLETTE MD Unavailable Unavailable EMERTON, A YOLETTE MD Unavailable Unavailable EMERTON, A YOLETTE MD Unavailable Unavailable EMERTON, A YOLETTE MD Unavailable Unavailable EMERTON, A YOLETTE MD Unavailable Unavailable EMERTON, A YOLETTE MD Unavailable Unavailable EMERTON, A YOLETTE MD Unavailable Unavailable EMERTON, A YOLETTE MD Unavailable Unavailable EMERTON, A YOLETTE MD Unavailable Unavailable EMERTON, A YOLETTE MD Unavailable Unavailable EMERTON, A YOLETTE MD Unavailable Unavailable EMERTON, A YOLETTE MD Unavailable Unavailable EMERTON, A YOLETTE MD Unavailable Unavailable Corcoran, Rebecca Yolanda EYEWEAR CONSULTANT Unavailable Unavailable Corcoran, Rebecca Yolanda EYEWEAR CONSULTANT Unavailable Unavailable Corcoran, Rebecca Yolanda EYEWEAR CONSULTANT Unavailable Unavailable Corcoran, Rebecca Yolanda EYEWEAR CONSULTANT Unavailable Unavailable Corcoran, Rebecca Yolanda EYEWEAR CONSULTANT Unavailable Unavailable Corcoran, Rebecca Yolanda EYEWEAR CONSULTANT Unavailable Unavailable [facility], DLISLE Unavailable Unavailable RING, K JODY PA Unavailable Unavailable RING, K JODY PA Unavailable Unavailable RING, K JODY PA Unavailable Unavailable RING, K JODY PA Unavailable Unavailable RING, K JODY PA Unavailable Unavailable RING, K JODY PA Unavailable Unavailable RING, K JODY PA Unavailable Unavailable RING, K JODY PA Unavailable Unavailable RING, K JODY PA Unavailable Unavailable RING, K JODY PA Unavailable Unavailable RING, K JODY PA Unavailable Unavailable RING, K JODY PA Unavailable Unavailable RING, K JODY PA Unavailable Unavailable RING, K JODY PA Unavailable Unavailable RING, K JODY PA Unavailable Unavailable RING, K JODY PA Unavailable Unavailable RING, K JODY PA Unavailable Unavailable RING, K JODY PA Unavailable Unavailable RING, K JODY PA Unavailable Unavailable RING, K JODY PA Unavailable Unavailable RING, K JODY PA Unavailable Unavailable KESHIA, NENO PA Unavailable Unavailable KESHIA, NENO PA Unavailable Unavailable KESHIA, NENO PA Unavailable Unavailable KESHIA, NENO PA Unavailable Unavailable KESHIA, NENO PA Unavailable Unavailable KESHIA, NENO PA Unavailable Unavailable KESHIA, NENO PA Unavailable Unavailable KESHIA, NENO PA Unavailable Unavailable KESHIA, NENO PA Unavailable Unavailable KESHIA, NENO PA Unavailable Unavailable KESHIA, NENO PA Unavailable Unavailable KESHIA, NENO PA Unavailable Unavailable KESHIA, NENO PA Unavailable Unavailable KESHIA, NENO PA Unavailable Unavailable KESHIA, NENO PA Unavailable Unavailable KESHIA, NENO PA Unavailable Unavailable KESHIA, NENO PA Unavailable Unavailable KESHIA, NENO PA Unavailable Unavailable KESHIA, NENO PA Unavailable Unavailable KESHIA, NENO PA Unavailable Unavailable KESHIA, NENO PA Unavailable Unavailable KESHIA, NENO PA Unavailable Unavailable KESHIA, NENO PA Unavailable Unavailable KESHIA, NENO PA Unavailable Unavailable KESHIA, NENO PA Unavailable Unavailable KESHIA, NENO PA Unavailable Unavailable KESHIA, NENO PA Unavailable Unavailable KESHIA, NENO PA Unavailable Unavailable KESHIA, NENO PA Unavailable Unavailable KESHIA, NENO PA Unavailable Unavailable KESHIA, NENO PA Unavailable Unavailable KESHIA, NENO PA Unavailable Unavailable KESHIA, NENO PA Unavailable Unavailable KESHIA, NENO PA Unavailable Unavailable KESHIA, NENO PA Unavailable Unavailable KESHIA, NEON PA Unavailable Unavailable KESHIA, NENO PA Unavailable Unavailable KESHIA, NENO PA Unavailable Unavailable KESHIA, NENO PA Unavailable Unavailable Tricia Aleman PA Unavailable Unavailable Tricia Aleman PA Unavailable Unavailable Tricia Aleman PA Unavailable Unavailable Tricia Aleman PA Unavailable Unavailable Tricia Aleman PA Unavailable Unavailable Tricia Aleman PA Unavailable Unavailable Tricia Aleman PA Unavailable Unavailable Tricia Alemna PA Unavailable Unavailable Tricia Aleman PA Unavailable Unavailable Tricia Aleman PA Unavailable Unavailable Tricia Aleman PA Unavailable Unavailable Love, Tricia Espinoza PA Unavailable Unavailable Love, Tricia Espinoza PA Unavailable Unavailable Phoenix, Tricia Espinoza PA Unavailable Unavailable Love, Tricia Espinoza PA Unavailable Unavailable Love, Tricia Espinoza PA Unavailable Unavailable Phoenix, Tricia Espinoza PA Unavailable Unavailable Phoenix, Tricia Espinoza PA Unavailable Unavailable Phoenix, Tricia Espinoza PA Unavailable Unavailable Phoenix, Tricia Espinoza PA Unavailable Unavailable Phoenix, Tricia Maoey PA Unavailable Unavailable Phoenix, Tricia Maoey PA Unavailable Unavailable Dodard, Bashir DO Unavailable Unavailable Dodard, Bashir DO Unavailable Unavailable Dodard, Bashir DO Unavailable Unavailable Dodard, Bashir DO Unavailable Unavailable Dodard, Bashir DO Unavailable Unavailable Dodard, Bashir DO Unavailable Unavailable Dodard, Bashir DO Unavailable Unavailable Dodard, Bashir DO Unavailable Unavailable Dodard, Bashir DO Unavailable Unavailable Dodard, Bashir DO Unavailable Unavailable Dodard, Bashir DO Unavailable Unavailable Dodard, Bashir DO Unavailable Unavailable Dodard, Bashir DO Unavailable Unavailable Dodard, Bashir DO Unavailable Unavailable Dodard, Bashir DO Unavailable Unavailable Dodard, Bashir DO Unavailable Unavailable Dodard, Bashir DO Unavailable Unavailable Dodard, Bashir DO Unavailable Unavailable Dodard, Bashir DO Unavailable Unavailable Dodard, Bashir DO Unavailable Unavailable Dodard, Bashir DO Unavailable Unavailable Dodard, Bashir DO Unavailable Unavailable Dodard, Bashir DO Unavailable Unavailable Dodard, Bashir DO Unavailable Unavailable Dodard, Bashir DO Unavailable Unavailable Dodard, Bashir DO Unavailable Unavailable Dodard, Bashir DO Unavailable Unavailable Dodard, Bashir DO Unavailable Unavailable Dodard, Bashir DO Unavailable Unavailable Dodard, Bashir DO Unavailable Unavailable Dodard, Bashir DO Unavailable Unavailable Dodard, Bashir DO Unavailable Unavailable Dodard, Bashir DO Unavailable Unavailable Dodard, Bashir DO Unavailable Unavailable Dodard, Bashir DO Unavailable Unavailable Dodard, Bashir DO Unavailable Unavailable Dodard, Bashir DO Unavailable Unavailable Dodard, Bashir DO Unavailable Unavailable Dodard, Bashir DO Unavailable Unavailable Dodard, Bashir DO Unavailable Unavailable Dodard, Bashir DO Unavailable Unavailable Dodard, Bashir DO Unavailable Unavailable Dodard, Bashir DO Unavailable Unavailable Dodard, Bashir DO Unavailable Unavailable Stephanie Grant Unavailable Unavailable Stephanie Grant Unavailable Unavailable Stephanie Grant Unavailable Unavailable Grant, Stephanie Marla PA Unavailable Unavailable Grant, Stephanie Marla PA Unavailable Unavailable Grant, Stephanie Marla PA Unavailable Unavailable Grant, Stephanie Marla PA Unavailable Unavailable Grant, Stephanie Marla PA Unavailable Unavailable Grant, Stephanie Marla PA Unavailable Unavailable Grant, Stephanie Marla PA Unavailable Unavailable LETTIERE, A CHRISTEN PA Unavailable Unavailable LETTIERE, A CHRISTEN PA Unavailable Unavailable LETTIERE, A CHRISTEN PA Unavailable Unavailable LETTIERE, A CHRISTEN PA Unavailable Unavailable LETTIERE, A CHRISTEN PA Unavailable Unavailable LETTIERE, A CHRISTEN PA Unavailable Unavailable LETTIERE, A CHRISTEN PA Unavailable Unavailable LETTIERE, A CHRISTEN PA Unavailable Unavailable LETTIERE, A CHRISTEN PA Unavailable Unavailable LETTIERE, A CHRISTEN PA Unavailable Unavailable LETTIERE, A CHRISTEN PA Unavailable Unavailable LETTIERE, A CHRISTEN PA Unavailable Unavailable LETTIERE, A CHRISTEN PA Unavailable Unavailable LETTIERE, A CHRISTEN PA Unavailable Unavailable LETTIERE, A CHRISTEN PA Unavailable Unavailable LETTIERE, A CHRISTEN PA Unavailable Unavailable LETTIERE, A CHRISTEN PA Unavailable Unavailable LETTIERE, A CHRISTEN PA Unavailable Unavailable LETTIERE, A CHRISTEN PA Unavailable Unavailable LETTIERE, A CHRISTEN PA Unavailable Unavailable LETTIERE, A CHRISTEN PA Unavailable Unavailable LETTIERE, A CHRISTEN PA Unavailable Unavailable LETTIERE, A CHRISTEN PA Unavailable Unavailable LETTIERE, A CHRISTEN PA Unavailable Unavailable LETTIERE, A CHRISTEN PA Unavailable Unavailable LETTIERE, A CHRISTEN PA Unavailable Unavailable LETTIERE, A CHRISTEN PA Unavailable Unavailable LETTIERE, A CHRISTEN PA Unavailable Unavailable LETTIERE, A CHRISTEN PA Unavailable Unavailable Re-disclosure Warning The records that you are about to access may contain information from federally-assisted alcohol or drug abuse programs. If such information is present, then the following federally mandated warning applies: This information has been disclosed to you from records protected by federal confidentiality rules (42 CFR part 2). The federal rules prohibit you from making any further disclosure of this information unless further disclosure is expressly permitted by the written consent of the person to whom it pertains or as otherwise permitted by 42 CFR part 2. A general authorization for the release of medical or other information is NOT sufficient for this purpose. The Federal rules restrict any use of the information to criminally investigate or prosecute any alcohol or drug abuse patient.The records that you are about to access may contain highly sensitive health information, the redisclosure of which is protected by Article 27-F of the [facility] Public Health law. If you continue you may have access to information: Regarding HIV / AIDS; Provided by facilities licensed or operated by the [facility] Office of Mental Health; or Provided by the [facility] Office for People With Developmental Disabilities. If such information is present, then the following [facility] mandated warning applies: This information has been disclosed to you from confidential records which are protected by state law. State law prohibits you from making any further disclosure of this information without the specific written consent of the person to whom it pertains, or as otherwise permitted by law. Any unauthorized further disclosure in violation of state law may result in a fine or snf sentence or both. A general authorization for the release of medical or other information is NOT sufficient authorization for further disc losure. Family History Family Member Name Family Member Gender Family Member Status Date o f Status Description Data Source(s) Unknown Male Diagnosis 07/12/2015 12:00:00 AM EDT [facility] ([facility]) Unknown Male Diagnosis 07/12/2015 12:00:00 AM EDT [facility] ([facility]) Unknown Male Diagnosis 08/15/2013 12:00:00 AM EDT [facility] ([facility]) Encounters Encounter Providers Location Date Indications Data Source(s ) Outpatient Attender: Marla Atkins margie 01/02/2020 09:45:00 AM EST [facility] ([facility], [facility]) Outpatient Attender: NENO Lou Prima ry 11/01/2019 11:10:00 AM EDT [facility] ([facility] Outpatient Attender: JODY Lou Primary 10/17/2019 05:15:00 PM EDT [facility] ([facility]) Unknown [address] [facility] [address] 09/01/2019 12:00:00 AM EDT [facility]CW1 ([facility]) Outpatient Referrer: Bashir Looney DO 08/19/2019 05:34:00 AM EDT [facility] Outpatient Referrer: Bashir Looney DO 08/13/2019 09:03:00 AM EDT [facility] Outpatient Referrer: Bashir Looney DO 08/04/2019 02:23:00 PM EDT [facility] Outpatient Referrer: YOLETTE MOYA MD 08/04/2019 02:22:00 PM EDT [facility] Outpatient Attender: [facility] 07/28/2019 07:41:19 PM ED T [facility] Attender: Tavia Vasquez 10:43:00 AM EDT - 06/05/2019 10:43:00 AM EDT [facility] ([facility]) Attender: Tavia Vasquez 09:11:00 AM EDT - 06/03/2019 09:11:00 AM EDT [facility] ([facility]) Attender: Yolanda Vasquez 05/21/2019 09:00:00 AM EDT - 05/21/2019 09:00:00 AM EDT [facility] ([facility]) Outpatient Attender: CHRISTEN hanson 04/29/2019 02:50:00 PM EDT [facility] ([facility]) Attender: Olga Vasquez 03/22 11:30:00 AM EST - 04/13/2019 11:30:00 AM EST Other specified noninflammatory disorder s of vaginaEncounter for test, result negativeEncounter for oth general cnsl and advice on contraceptionOther sex counseling [facility] Other specified noninflammatory disorder s of vagina Encounter for test, result neg ative Encounter for oth general cnsl and advic e on contraception Other sex counseling Medications Medication Brand Name Start Date Product Form Dose Route Admi nistrative Instructions Pharmacy Instructions Status Indications Reaction Description Data Source(s) Clindamycin 150 MG Oral Capsule CLINDAMYCIN HCL 02/09/2020 12:00 :00 AM EST capsule 28 TAKE ONE CAPSULE BY MOUTH FOUR T IMES A DAY FOR 7 DAYS TAKE ONE CAPSULE BY MOUTH FOUR TIMES A DAY FOR 7 DAYS SOLD: 02/10/2020 [facility] 300 mg 01/13/2020 12:00:00 AM EST capsule 14 TAKE ONE CAPSULE BY MOUTH EVERY 12 HOURS FOR 7 DAYS TAKE ONE CAPSULE BY MOUTH EVERY 12 HOURS FOR 7 DAYS SO LD: 01/13/2020 [facility] Cefixime 400 MG Oral Capsule CEFIXIME 01/04/2020 12:00:00 AM EST caps ule 7 TAKE ONE CAPSULE BY MOUTH EVERY DAY FOR 7 DAYS TAKE ONE CAPSULE BY MOUTH EVERY DAY FOR 7 DAYS SOLD: 01/05/2020 [facility] Azithromycin 250 MG Oral Tablet Azithromycin 01/02/2020 12:00:00 AM EST active [facility] ([facility]) 500 mg 01/02/2020 12:00:00 AM EST tablet 7 TAKE ONE TABLET BY MOUTH EVERY DAY TAKE ONE TABLET BY MOUTH EVERY DAY SOLD: 01/02/2020 [facility] 250 mg 12/09/2019 12:00:00 AM EDT tablet 6 TAKE TWO TABLETS BY MOUTH AT ONCE ON THE FIRST DAY THEN TAKE ONE DAILY THEREAFTER TAKE TWO TABLETS BY MOUTH AT ONCE ON THE FIRST DAY THEN TAKE ONE DAILY THEREAFTER SOLD: 12/09/2019 [facility] 300 mg 12/05/2019 12:00:00 AM EDT capsule 20 TAKE ONE CAPSULE BY MOUTH EVERY 12 HOURS FOR 10 DAYS TAKE ONE CAPSULE BY MOUTH EVERY 12 HOURS FOR 10 DAYS S OLD: 12/06/2019 [facility] Acyclovir 400 MG Oral Tablet ACYCLOVIR 12/01/2019 12:00:00 AM EDT tabl et 60 TAKE TWO TABLETS BY MOUTH EVERY DAY TAKE TWO TABLETS BY MOUTH EVERY DAY SOLD: 12/06/2019 [facility] Acyclovir 400 MG Oral Tablet ACYCLOVIR 12/01/2019 12:00:00 AM EDT tabl et 60 TAKE TWO TABLETS BY MOUTH EVERY DAY TAKE TWO TABLETS BY MOUTH EVERY DAY SOLD: 03/15/2020 [facility] Acyclovir 400 MG Oral Tablet ACYCLOVIR 12/01/2019 12:00:00 AM EDT tabl et 60 TAKE TWO TABLETS BY MOUTH EVERY DAY TAKE TWO TABLETS BY MOUTH EVERY DAY SOLD: 02/05/2020 [facility] 875 mg 11/24/2019 12:00:00 AM EDT tablet 20 TAKE ONE TABLET BY MOUTH EVERY 12 HOURS FOR 10 DAYS TAKE ONE TABLET BY MOUTH EVERY 12 HOURS FOR 10 DAYS SO LD: 11/25/2019 [facility] 300 mg 11/09/2019 12:00:00 AM EDT capsule 14 TAKE ONE CAPSULE BY MOUTH TWICE A DAY WITH FOOD UNTIL GONE TAKE ONE CAPSULE BY MOUTH TWICE A DAY WI TH FOOD UNTIL GONE SOLD: 11/09/2019 [facility] 100 mg 11/09/2019 12:00:00 AM EDT tablet 3 TAKE 1 TABLET BY MOUTH ONCE DAILY FOR 3 DAYS TAKE 1 TABLET BY MOUTH ONCE DAILY FOR 3 DAYS SOLD: 11/09/2019 [facility] Cephalexin 500 MG Oral Capsule CEPHALEXIN 11/03/2019 12:00:00 AM EDT capsule 56 TAKE ONE CAPSULE BY MOUTH EVERY 6 HOURS FOR 14 DAYS TA KE ONE CAPSULE BY MOUTH EVERY 6 HOURS FOR 14 DAYS SOLD: 11/03/2019 [facility] 300 mg 10/17/2019 12:00:00 AM EDT capsule 14 TAKE ONE CAPSULE BY MOUTH EVERY 12 HOURS FOR 7 DAYS TAKE ONE CAPSULE BY MOUTH EVERY 12 HOURS FOR 7 DAYS SO LD: 10/17/2019 [facility] cefdinir 300 MG Oral Capsule Cefdinir 10/17/2019 12:00:00 AM EDT ORAL completed [facility] ([facility]) 100 mg 09/10/2019 12:00:00 AM EDT capsule 14 TAKE ONE CAPSULE BY MOUTH TWICE A DAY FOR 7 DAYS TAKE ONE CAPSULE BY MOUTH TWICE A DAY FOR 7 DAYS SOLD: 09/10/2019 [facility] 875-125 mg 08/21/2019 12:00:00 AM EDT tablet 20 TAKE ONE TABLET BY MOUTH TWICE A DAY TAKE ONE TABLET BY MOUTH TWICE A DAY SOLD: 08/21/2019 [facility] 400 mg 06/16/2019 12:00:00 AM EDT tablet 60 TAKE TWO TABLETS BY MOUTH TWICE A DAY FOR 5 DAYS THEN TAKE 1 TABLETS BY MOUTH TWICE A DAY THEREAFTER TAKE TWO TABLETS BY MOUTH TWICE A DAY FOR 5 DAYS THEN TAKE 1 TABLETS BY MOUTH TWICE A DAY THEREAFTER SOLD: 09/10/2019 [facility] 400 mg 06/16/2019 12:00:00 AM EDT tablet 60 TAKE TWO TABLETS BY MOUTH TWICE A DAY FOR 5 DAYS THEN TAKE 1 TABLETS BY MOUTH TWICE A DAY THEREAFTER TAKE TWO TABLETS BY MOUTH TWICE A DAY FOR 5 DAYS THEN TAKE 1 TABLETS BY MOUTH TWICE A DAY THEREAFTER SOLD: 07/28/2019 [facility] 400 mg 06/16/2019 12:00:00 AM EDT tablet 60 TAKE TWO TABLETS BY MOUTH TWICE A DAY FOR 5 DAYS THEN TAKE 1 TABLETS BY MOUTH TWICE A DAY THEREAFTER TAKE TWO TABLETS BY MOUTH TWICE A DAY FOR 5 DAYS THEN TAKE 1 TABLETS BY MOUTH TWICE A DAY THEREAFTER SOLD: 06/18/2019 [facility] 400 mg 06/16/2019 12:00:00 AM EDT tablet 60 TAKE TWO TABLETS BY MOUTH TWICE A DAY FOR 5 DAYS THEN TAKE 1 TABLETS BY MOUTH TWICE A DAY THEREAFTER TAKE TWO TABLETS BY MOUTH TWICE A DAY FOR 5 DAYS THEN TAKE 1 TABLETS BY MOUTH TWICE A DAY THEREAFTER SOLD: 10/24/2019 [facility] 150 mg 05/26/2019 12:00:00 AM EDT tablet 2 TAKE 1 TABLET BY MOUTH ONCE TAKE 1 TABLET BY MOUTH ONCE SOLD: 05/27/2019 [facility] 150 mg 05/26/2019 12:00:00 AM EDT tablet 2 TAKE 1 TABLET BY MOUTH ONCE TAKE 1 TABLET BY MOUTH ONCE SOLD: 06/13/2019 [facility] 137 mcg (0.1 %) 05/26/2019 12:00:00 AM EDT aerosol,spray 30 SPRAY ONE SPRAY IN EACH NOSTRIL TWICE A DAY SPRAY ONE SPRAY IN EACH NOSTRIL TWICE A DAY SOLD: 05/27/2019 [facility] levocetirizine dihydrochloride 5 MG Oral Tablet LEVOCETIRIZI NE DIHYDROCHLORIDE 05/26/2019 12:00:00 AM EDT tablet 30 TAKE ONE TABLE T BY MOUTH EVERY DAY TAKE ONE TABLET BY MOUTH EVERY DAY SOLD: 05/27/2019 [facility] 300 mg 05/15/2019 12:00:00 AM EDT capsule 14 TAKE ONE CAPSULE BY MOUTH TWICE A DAY TAKE ONE CAPSULE BY MOUTH TWICE A DAY SOLD: 05/15/2019 [facility] 875 mg 04/29/2019 12:00:00 AM EDT tablet 20 TAKE ONE TABLET BY MOUTH EVERY 12 HOURS FOR 10 DAYS TAKE ONE TABLET BY MOUTH EVERY 12 HOURS FOR 10 DAYS SO LD: 04/29/2019 [facility] Amoxicillin 875 MG Oral Tablet Amoxicillin 04/29/2019 12:00:00 AM EDT completed MEDENT ([facility]) 150 mg 03/26/2019 12:00:00 AM EST tablet 1 TAKE 1 TABLET BY MOUTH ONCE DAILY FOR 1 DAY TAKE 1 TABLET BY MOUTH ONCE DAILY FOR 1 DAY SOLD: 03/28/2019 [facility] 150 mg 03/24/2019 12:00:00 AM EST tablet 1 1 BY MOUTH ONCE 1 BY MOUTH ONCE SOLD: 03/25/2019 [facility] 500 mg 02/07/2019 12:00:00 AM EST tablet 14 TAKE ONE TABLET BY MOUTH TWICE A DAY FOR 7 DAYS TAKE ONE TABLET BY MOUTH TWICE A DAY FOR 7 DAYS SOLD: 2018 [facility] Insurance Providers Payer name Policy type / Coverage type Policy ID Covered libertarian ID Covered libertarian's relationship to pablo Policy Pablo Plan Information [facility] [place] [id number] SP [id number] [facility] [id number] SP [id number] [facility] O [id number] S [id number] [facility] [id number] self [place]CDP [facility] I [id number] Self [id number] MEDICAID [id number] SP [id number] [facility] [id number] SP [id number] [facility] [place] [facility] BLUE [id number] ANSI-Medicaid [id number] ANSI-Medicaid [id number] ANSI-Medicaid [id number] ANSI-Medicaid [id number] ANSI-Medicaid [id number] ANSI-Medicaid [id number] [facility] ([facility]) [id number] Self [id number] [facility] Health Maintenance [facility] (O) [id number] Self [id number] ANSI-Medicaid [id number] ANSI-Medicaid [id number] ANSI-Medicaid [id number] ANSI-Medicaid [id number] ANSI-Medicaid [id number] ANSI-Medicaid [id number] [facility] Health Maintenance [facility] (O) [id number] Self [id number] ANSI-Medicaid [id number] ANSI-Medicaid [id number] ANSI-Medicaid [id number] [facility] Health Maintenance [facility] (O) [phone] Self [id number] ANSI-Medicaid [id number] ANSI-Medicaid [id number] ANSI-Medicaid [id number] ANSI-Medicaid [id number] ANSI-Medicaid [id number] ANSI-Medicaid [id number] [facility] COMMUNITY PLAN [facility] [place] [id number] SP [id number] ANSI-Medicaid [id number] ANSI-Medicaid [id number] ANSI-Medicaid [id number] ANSI-Medicaid [id number] ANSI-Medicaid [id number] ANSI-Medicaid [id number] ANSI-Medicaid [id number] ANSI-Medicaid [id number] ANSI-Medicaid [id number] ANSI-Medicaid [id number] ANSI-Medicaid [id number] ANSI-Medicaid [id number] ANSI-Medicaid [id number] ANSI-Medicaid [id number] ANSI-Medicaid [id number] ANSI-Medicaid [id number] [facility] Health Maintenance Organization (HMO) [id number] Self [id number] ANSI-Medicaid [id number] ANSI-Medicaid [id number] ANSI-Medicaid [id number] ANSI-Medicaid [id number] ANSI-Medicaid [id number] ANSI-Medicaid [id number] ANSI-Medicaid [id number] ANSI-Medicaid [id number] ANSI-Medicaid [id number] ANSI-Medicaid [id number] MEDICAID M [id number] Self [id number] ANSI-Medicaid [id number] ANSI-Medicaid [id number] ANSI-Medicaid [id number] ANSI-Medicaid [id number] ANSI-Medicaid [id number] [facility] COMMUNITY PLAN [facility] [place] [id number] SP [id number] ANSI-Medicaid [id number] [facility] COMMUNITY PLAN [facility] [place] [id number] SP [id number] ANSI-Medicaid [id number] ANSI-Medicaid [id number] SELF PAY ONLY [id number] SP [id number] SELF PAY SP [id number] S [id number] JACKI [id number] SP [id number] JACKI [id number] SP [id number] UN COMMUNITY PLAN MCDO [id number] SP [id number] [facility] Hmo Commercial Self SELF PAY UNAVAILABLE SP UNAVAILA BLE [facility](MCA[facility]) O [id number] S [id number] UN COMMUNITY PLAN MCDHMO [id number] SP [id number] [facility] Health Maintenance Organization (HMO) Self BLUE CROSS TRIPATHI PLAN [id number] SP [id number] HMO BLUE [id number] SP [id number] Problems, Conditions, and Diagnoses Code Display Name Description Problem Type Effective Dates Data Source(s) Z34.80 care Supervision of other normal Prasanth ever 06/25/2019 12:00:00 AM EDT [facility] Results ID Date Data Source [id number] 03/17/2020 12:00:00 AM EST [place] Name Value Range Interpretation Code Description Data Doreen rce(s) Supporting Document(s) SARS-CoV2 Rapid [facility]igen [facility] This lab was reported by [facility]. ID Date Data Source [id number] 01/02/2020 12:00:00 AM EST [place] Name Value Range Interpretation Code Description Data Doreen rce(s) Supporting Document(s) SARS-CoV2 Rapid Antigen [facility] This lab was reported by [facility]. ID Date Data Source [id number] 11/01/2019 01:10:00 PM EDT MEDENT ([facility]) Name Value Range Interpretation Code Description Data Doreen rce(s) Supporting Document(s) Group A Strep Culture Laboratory test result MEDENT ([facility]) FULL REPORT IN LAB NOTES (eCW and Medent ). NEGATIVE FOR STREP PYOGENES (GROUP A) ID Date Data Source [id number] 10/29/2019 12:00:00 AM EDT [facility] ology Imaging Marsha Simons Cnm Patient Name: SHAYY [id number] [facility] Date of : 1990[place] [address] Date of Exam: 10/29/2019#: Fax: [phone] EXAM: US OB 2ND & 3RD TRIMESTER, COMPLETE- SINGLE FETUSCLINICAL INFORMATION: Supervision of . 6, Para 1, Ab 4LMP: 06/03/2019 = 21 weeks 1 day, LORA(LMP) = 03/09/2020xpected GA/1st sono = 20 weeks 1 day, LORA (expected) = 03/16/2020Today's sono findings = 21 weeks 0 days, LORA (today's sono) = 03/10/2020Fetal Number: SingletonFetal Position: TransverseFetal Heart Rate: 126 BPMPlacental Position: Posterior, fundal, Grade 1Amniotic Fluid Volume: NormalCervix Length: 4.0 cmFETAL MEASUREMENTS:BPD: 5.1 cm = 21 weeks 2 daysHC: 18.3 cm = 20 weeks 5 daysAC: 16.2 cm = 21 weeks 2 daysFL: 3.3 cm = 20 weeks 3 daysHL: 3.3 cm = 21 weeks 1 dayEstimated Weight: 383 grams, 13 ounces, 74th percentileThe following structures are visualized and are unremarkable:Cranium, cavum, cerebellum, posterior fossa-cisterna magna, choroid plexus,midline falx, lateral ventricles, orbits, face-profile, face-lips/mouth,neck, 4-chamber heart, RVOT, LVOT, diaphragm, stomach, kidneys, bladder,abdominal wall, cord insertion, umbilical arteries, 3-vessel cord, colorDoppler, spine and upper and lower extremities.Accredited by the [employer] in Obstetrical Ultrasound.FARZANA Morales/Rylee you for referring SHAYY JAMES to our office. Electronically Signed - KARMA LEAL DO 10/30/19 8:52 Name Value Range Interpretation Code Description Data Doreen rce(s) Supporting Document(s) ID Date Data Source [id number] 08/13/2019 12:00:00 AM EDT [facility] Imaging Bashir Looney DO Patient Name: SHAYY [id number] [facility] Date of : 1990[place] [address] Date of Exam: 08/13/2019PH#: Fax: [phone] EXAM: US OB < 14 WKS, SINGLE FETUSCLINICAL INFORMATION: Supervision of other normal . 6, Para 1, Ab 4LMP: 06/03/2019 = 10 weeks 1 day, LORA: 03/09/2020.GA by today's ultrasound = 9 weeks 1 day, LORA: 03/16/2020.CRL: 2.4 cm = 9 weeks 1 day, 50th percentileFetal Heart Rate: 167 BPMType of Gestation: SingletonAmniotic fluid volume: NormalYolk Sac IS NOT seen. Pole IS seen. heart motion IS seen. motion IS seen.Neither ovary was visualized, but no adnexal masses or cysts were seen.Accredited by the [employer] in Obstetrical Ultrasound.Karma Leal, FARZANA/jmcThank jose for referring SHAYY JAMES to our office. Electronically Signed - KARMA LEAL DO 08/14/19 12:56 Name Value Range Interpretation Code Description Data Doreen rce(s) Supporting Document(s) Procedure Social History Code Duration Value Status Description Data Source(s ) Smoking 06/05/2019 12:00:00 AM EDT Unknown if ever smoked comp leted Unknown if ever smoked [facility] ([facility]) Vital Signs ID Date Data Source UNK Name Value Range Interpretation Code Description Data Source(s) Body weight 189.00 [lb_av] 189.00 [lb_av] MEDEN T ([facility]) Body temperature 97.9 [degF] 97.9 [degF] MEDENT ([facility]) Oxygen saturation in Arterial blood by Pulse oximetry 98 % 98 % MEDENT ([facility], [facility]) Respiratory rate 18 /min 18 /min MED[facility] ( [facility]) Heart rate 92 /min 92 /min MEDENT ([facility]) Diastolic blood pressure 82 mm[Hg] 82 mm[Hg] MEDENT ([facility]) Systolic blood pressure 119 mm[Hg] 119 mm[Hg] M EDENT ([facility], [facility]) Body mass index (BMI) [Ratio] 32.1 kg/m2 32.1 k g/m2 MEDENT ([facility], [facility]) Body height 61 [in_i] 61 [in_i] MEDENT ([facility]) 5'1" Body weight 170.00 [lb_av] 170.00 [lb_av] MEDEN T ([facility], [facility]) Body temperature 98.2 [degF] 98.2 [degF] MEDENT ([facility], [facility]) Oxygen saturation in Arterial blood by Pulse oximetry 98 % 98 % MEDENT ([facility]) Respiratory rate 24 /min 24 /min MEDENT ( [facility]) Heart rate 99 /min 99 /min MEDENT ([facility]) Diastolic blood pressure 69 mm[Hg] 69 mm[Hg] MEDENT ([facility], [facility]) Systolic blood pressure 119 mm[Hg] 119 mm[Hg] [facility] Body mass index (BMI) [Ratio] 32.1 kg/m2 32.1 k g/m2 MEDENT ([facility], [facility]) Body height 61 [in_i] 61 [in_i] MEDENT ([facility]) 5'1" Body weight 170.00 [lb_av] 170.00 [lb_av] MEDEN T ([facility], [facility]) Body temperature 97.9 [degF] 97.9 [degF] MEDENT ([facility], [facility]) Oxygen saturation in Arterial blood by Pulse oximetry 98 % 98 % MEDENT ([facility], [facility]) Respiratory rate 12 /min 12 /min MEDENT ( [facility]) Heart rate 107 /min 107 /min MEDENT ([facility]) Diastolic blood pressure 81 mm[Hg] 81 mm[Hg] MEDENT ([facility]) Systolic blood pressure 121 mm[Hg] 121 mm[Hg] [facility]) Body weight 170.00 [lb_av] 170.00 [lb_av] MEDEN T ([facility], [facility]) Body temperature 97.5 [degF] 97.5 [degF] MEDENT ([facility], [facility]) Oxygen saturation in Arterial blood by Pulse oximetry 98 % 98 % MEDENT ([facility], [facility]) Respiratory rate 12 /min 12 /min MEDENT ( [facility]) Heart rate 109 /min 109 /min MEDENT ([facility]) Diastolic blood pressure 85 mm[Hg] 85 mm[Hg] MEDENT ([facility], [facility]) Systolic blood pressure 136 mm[Hg] 136 mm[Hg] [facility]) Body mass index (BMI) [Ratio] 32.1 kg/m2 32.1 k g/m2 MEDENT ([facility], [facility]) Body height 61 [in_i] 61 [in_i] MEDENT ([facility]) 5'1"
[2020-04-07] MEDS ORDERED: ACYC400T (16:28)
--- OUTSIDE RECORDS SUMMARY | 2020-04-07 18:28 | CCD ---
Author Author [facility] Organization [facility] Address Unknown Phone Unavailable Care Team Providers Care Submarine Operator Name Role Phone Bryson, Rajinder Squires MD Unavailable Unavailable Bryson, Rajinder Squires MD Unavailable Unavailable Bryson, Rajinder Squires MD Unavailable Unavailable Bryson, Rajinder Squires MD Unavailable Unavailable Bryson, Rajinder Squires MD Unavailable Unavailable Bryson, Rajinder Squires MD Unavailable Unavailable Bryson, Rajinder Squires MD Unavailable Unavailable Bryson, Rajnider Squires MD Unavailable Unavailable Bryson, Rajinder Squires [...] Bryson, Rajinder Squires MD Unavailable Unavailable Bryson, aRjinder Squires MD Unavailable Unavailable Bryson, Rajinder Squires [...] A YOLETTE MD Unavailable Unavailable Corcoran, Rebecca Yolnada BRIDGE CONTRACTOR Unavailable Unavailable Corcoran, Rebecca Yolanda BRIDGE CONTRACTOR Unavailable Unavailable Corcoran, Rebecca Yolanda BRIDGE CONTRACTOR Unavailable Unavailable Corcoran, Rebecca Yolanda BRIDGE CONTRACTOR Unavailable Unavailable Corcoran, Rebecca Yolanda BRIDGE CONTRACTOR Unavailable Unavailable Corcoran, Rebecca Yolanda BRIDGE CONTRACTOR Unavailable Unavailable [facility] Unavailable Unavailable RING, [...] Unavailable Love, Tricia Espinoza PA Unavailable Unavailable Waka, Tricia Espinoza PA Unavailable Unavailable Love, Tricia Espinoza PA Unavailable Unavailable Love, Tricia Espinoza PA Unavailable Unavailable Waka, Tricia Espinoza PA Unavailable Unavailable Waka, Tricia Espinoza PA Unavailable Unavailable Waka, Tricia Espinoza PA Unavailable Unavailable Waka, Tricia Espinoza PA Unavailable Unavailable Waka, Tricia Maoey PA Unavailable Unavailable Waka, Tricia Maoey PA Unavailable Unavailable Dodard, Bashir [...] is protected by Article 27-F of the [facility] Public Health law. If you continue you may have access to information: Regarding HIV / AIDS; Provided by facilities licensed or operated by the [facility] Office of Mental Health; or Provided by the [facility] Office for People With Developmental Disabilities. If such information is present, then the following [facility] mandated warning applies: This information [...] law may result in a fine or residential sentence or both. A general authorization for the release of medical or other information is NOT sufficient authorization for further disc losure. Family History Family Member Name Family Member Gender Family Member Status Date o f Status Description Data Source(s) Unknown Male Diagnosis 07/12/2015 12:00:00 AM EDT [facility] ([facility]) Unknown Male Diagnosis 07/12/2015 12:00:00 AM EDT [facility] ([facility]) Unknown Male Diagnosis 08/15/2013 12:00:00 AM EDT [facility] ([facility]) Encounters Encounter Providers Location Date Indications Data Source(s ) Outpatient Attender: Marla Atkins margie 01/02/2020 09:45:00 AM EST [facility] ([facility], [facility]) Outpatient Attender: NENO Lou Prima ry 11/01/2019 11:10:00 AM EDT [facility] ([facility] Outpatient Attender: JODY Lou Primary 10/17/2019 05:15:00 PM EDT [facility] ([facility], [facility]) Unknown [address] [address] 09/01/2019 12:00:00 AM EDT eCW1 ([facility]) Outpatient Referrer: Bashir Looney DO 08/19/2019 05:34:00 AM EDT [facility] Outpatient Referrer: Bashir Looney DO 08/13/2019 09:03:00 AM EDT [facility] Outpatient Referrer: Bashir Looney DO 08/04/2019 02:23:00 PM EDT [facility] Outpatient Referrer: YOLETTE MOYA MD 08/04/2019 02:22:00 PM EDT [facility] Outpatient Attender: JOHNY REDDY ADULT PC 07/28/2019 07:41:19 PM ED T [facility] Attender: Tavia Vasquez 10:43:00 AM EDT - 06/05/2019 10:43:00 AM EDT [facility] ([facility]) Attender: Tavia Vasquez 09:11:00 AM EDT - 06/03/2019 09:11:00 AM EDT [facility] ([facility]) Attender: Yolanda Vasquez 05/21/2019 09:00:00 AM EDT - 05/21/2019 09:00:00 AM EDT [facility] ([facility]) Outpatient Attender: CHRISTEN hanson 04/29/2019 02:50:00 PM EDT [facility]ENT ([facility], [facility]) Attender: Olga Vasquez 03/22 11:30:00 AM EST - 04/13/2019 11:30:00 AM EST Other specified noninflammatory disorder s of vaginaEncounter for test, result negativeEncounter for oth general cnsl and advice on contraceptionOther sex counseling [facility] ([facility]) Other specified noninflammatory disorder s of vagina [...] HOURS FOR 7 DAYS SO LD: 01/13/2020 [facility] Cefixime 400 MG Oral Capsule CEFIXIME 01/04/2020 12:00:00 AM EST caps ule 7 TAKE ONE CAPSULE BY MOUTH EVERY DAY FOR 7 DAYS TAKE ONE CAPSULE BY MOUTH EVERY DAY FOR 7 DAYS SOLD: 01/05/2020 Joanne carlton Azithromycin 250 MG Oral Tablet Azithromycin 01/02/2020 12:00:00 AM EST active MEDENT ([facility], [facility]) 500 mg 01/02/2020 12:00:00 AM EST tablet [...] 10/17/2019 12:00:00 AM EDT ORAL completed [facility]ENT ([facility] 100 mg 09/10/2019 12:00:00 AM EDT capsule [...] Amoxicillin 04/29/2019 12:00:00 AM EDT completed MEDENT ([facility], [facility]) 150 mg 03/26/2019 12:00:00 AM EST tablet [...] type / Coverage type Policy ID Covered republican ID Covered republican's relationship to pablo Policy Pablo Plan Information [employer] COMMUNITY PLAN [facility] [id number] SP [id number] [employer] COMMUNITY PLAN [facility] [id number] SP [id number] [id number] [id number] SP [id number] O BLUE [id number] FA [id number] [facility] [id number] SP [id number] [facility]) O [id number] S [id number] [facility] [id number] self [place]CDP [facility] I [id number] Self [id number] MEDICAID [id number] SP [id number] ANSI-Medicaid [id number] ANSI-Medicaid [id number] ANSI-Medicaid [id number] ANSI-Medicaid [id number] ANSI-Medicaid [id number] ANSI-Medicaid [id number] [facility] Health Maintenance Organization ([facility]) [id number] Self [id number] [facility] Health Maintenance [facility] ([facility]) [id number] Self [id number] ANSI-Medicaid [id number] ANSI-Medicaid [id number] ANSI-Medicaid [id number] ANSI-Medicaid [id number] ANSI-Medicaid [id number] ANSI-Medicaid [id number] [facility] Health Maintenance Organization (O) [id number] Self [id number] ANSI-Medicaid [id number] ANSI-Medicaid [id number] ANSI-Medicaid [id number] [facility] Health Maintenance Organization ([facility]) [id number] Self [id number] ANSI-Medicaid [id number] ANSI-Medicaid [id number] ANSI-Medicaid [id number] ANSI-Medicaid [id number] ANSI-Medicaid [id number] ANSI-Medicaid [id number] [facility] [id number] ANSI-Medicaid [id number] ANSI-Medicaid [id number] ANSI-Medicaid [id number] ANSI-Medicaid [id number] ANSI-Medicaid [id number] ANSI-Medicaid [id number] ANSI-Medicaid [id number] ANSI-Medicaid [id number] ANSI-Medicaid [id number] ANSI-Medicaid [id number] ANSI-Medicaid [id number] ANSI-Medicaid [id number] ANSI-Medicaid [id number] ANSI-Medicaid [id number] ANSI-Medicaid [id number] ANSI-Medicaid [id number] [facility] Health Maintenance Organization (HMO) [id number] Self [id number] ANSI-Medicaid [id number] ANSI-Medicaid [id number] ANSI-Medicaid [id number] ANSI-Medicaid [id number] ANSI-Medicaid [id number] ANSI-Medicaid [id number] ANSI-Medicaid [id number] ANSI-Medicaid [id number] ANSI-Medicaid [id number] ANSI-Medicaid [id number] MEDICAID M [id number] Self [id number] ANSI-Medicaid [id number] ANSI-Medicaid [id number] ANSI-Medicaid [id number] ANSI-Medicaid [id number] ANSI-Medicaid [id number] [facility] COMMUNITY PLAN [facility] [id number] SP [id number] ANSI-Medicaid [id number] [facility] COMMUNITY PLAN [facility] [id number] SP [id number] ANSI-Medicaid [id number] ANSI-Medicaid [id number] SELF PAY ONLY [id number] SP [id number] SELF PAY SP [id number] S [id number] JACKI [id number] SP [id number] JACKI [id number] SP [id number] [facility] COMMUNITY PLAN [facility] [id number] SP [id number] [facility] Hmo Commercial Self SELF PAY UNAVAILABLE SP UNAVAILA BLE [facility]) O [id number] S [id number] UN COMMUNITY PLAN MCDO [id number] SP [id number] [facility] Health Maintenance Organization (HMO) Self BLUE CROSS TRIPATHI PLAN [id number] SP [id number] HMO BLUE [id number] SP [id number] Problems, Conditions, and Diagnoses Code Display Name Description Problem Type Effective Dates Data Source(s) Z34.80 care Supervision of other normal Prasanth curtis 06/25/2019 12:00:00 AM EDT eCW1 ([facility]) Results ID Date Data Source [id number] 03/17/2020 12:00:00 AM EST [facility] Name Value Range Interpretation Code Description Data Doreen rce(s) Supporting Document(s) SARS-CoV2 Rapid Antigen Positive [facility] This lab was reported by [facility]. ID Date Data Source [id number] 01/02/2020 12:00:00 AM EST [facility] Name Value Range Interpretation Code Description Data Doreen rce(s) Supporting Document(s) SARS-[facility]2 [facility]igen [facility] This lab was reported by [facility]. ID Date Data Source [id number] 11/01/2019 01:10:00 PM EDT MEDENT ([facility]) Name Value Range Interpretation Code Description Data Doreen rce(s) Supporting Document(s) Group A Strep Culture Laboratory test [facility] FULL REPORT IN LAB NOTES (eCW and Medent ). NEGATIVE FOR STREP PYOGENES (GROUP A) ID Date Data Source [id number] 10/29/2019 12:00:00 AM EDT [facility] Marsha Simons Cnm Patient Name: JAYLENE [id number] [facility] Date of : 1990[place] [address] Date of Exam: 10/29/2019PH#: Fax: [phone] EXAM: US OB 2ND & [...] and upper and lower extremities.Accredited by the [employer] in Obstetrical Ultrasound.FARZANA Morales/Rylee you for referring SHAYY JAMES to our office. Electronically Signed - KARMA LEAL DO 10/30/19 8:52 Name Value Range Interpretation Code Description Data Doreen rce(s) Supporting Document(s) ID Date Data Source [id number] 08/13/2019 12:00:00 AM EDT [facility] Bashir Looney DO Patient Name: SHAYY [id number] [facility] Date of : 1990[place] [address] Date of Exam: 08/13/2019PH#: Fax: [phone] EXAM: [...] masses or cysts were seen.Accredited by the [employer] in Obstetrical Ultrasound.FARZANA Morales/Rylee [...] if ever smoked [facility] ([facility]) Vital Signs ID Date Data Source UNK Name Value Range Interpretation Code Description Data Source(s) Body weight 189.00 [lb_av] 189.00 [lb_av] MEDEN T ([facility], [facility]) Body temperature 97.9 [degF] 97.9 [degF] MEDENT ([facility], [facility]) Oxygen saturation in Arterial blood by Pulse oximetry 98 % 98 % [facility] ([facility], [facility]) Respiratory rate 18 /min 18 /min [facility] ( [facility], [facility]) Heart rate 92 /min 92 /min [facility] ([facility], [facility]) Diastolic blood pressure 82 mm[Hg] 82 mm[Hg] [facility] ([facility], [facility]) Systolic blood pressure 119 mm[Hg] 119 mm[Hg] [facility]) Body mass index (BMI) [Ratio] 32.1 kg/m2 32.1 k g/m2 [facility] ([facility], [facility]) Body height 61 [in_i] 61 [in_i] [facility] ([facility]) 5'1" Body weight 170.00 [lb_av] 170.00 [lb_av] MEDEN T ([facility], [facility]) Body temperature 98.2 [degF] 98.2 [degF] MEDENT ([facility], [facility]) Oxygen saturation in Arterial blood by Pulse oximetry 98 % 98 % [facility] ([facility], [facility]) Respiratory rate 24 /min 24 /min [facility] ( [facility], [facility]) Heart rate 99 /min 99 /min MEDENT ([facility], [facility]) Diastolic blood pressure 69 mm[Hg] 69 mm[Hg] [facility] ([facility], [facility]) Systolic blood pressure 119 mm[Hg] 119 mm[Hg] [facility] ([facility], [facility]) Body mass index (BMI) [Ratio] 32.1 kg/m2 32.1 k g/m2 [facility] ([facility], [facility]) Body height 61 [in_i] 61 [in_i] [facility] ([facility], [facility]) 5'1" Body weight 170.00 [lb_av] 170.00 [lb_av] MEDEN T ([facility], [facility]) Body temperature 97.9 [degF] 97.9 [degF] MEDENT ([facility], [facility]) Oxygen saturation in Arterial blood by Pulse oximetry 98 % 98 % [facility] ([facility], [facility]) Respiratory rate 12 /min 12 /min [facility] ( [facility], [facility]) Heart rate 107 /min 107 /min MEDENT ([facility], [facility]) Diastolic blood pressure 81 mm[Hg] 81 mm[Hg] [facility] ([facility], [facility]) Systolic blood pressure 121 mm[Hg] 121 mm[Hg] [facility] ([facility], [facility]) Body weight 170.00 [lb_av] 170.00 [lb_av] MEDEN T ([facility], [facility]) Body temperature 97.5 [degF] 97.5 [degF] MEDENT ([facility], [facility]) Oxygen saturation in Arterial blood by Pulse oximetry 98 % 98 % [facility] ([facility], [facility]) Respiratory rate 12 /min 12 /min [facility] ( [facility], [facility]) Heart rate 109 /min 109 /min [facility] ([facility], [facility]) Diastolic blood pressure 85 mm[Hg] 85 mm[Hg] MEDENT ([facility], [facility]) Systolic blood pressure 136 mm[Hg] 136 mm[Hg] [facility], [facility]) Body mass index (BMI) [Ratio] 32.1 kg/m2 32.1 k g/m2 [facility] ([facility], [facility]) Body height 61 [in_i] 61 [in_i] [facility] ([facility], [facility]) 5'1"
[2020-04-07] MEDS ORDERED: ASPIRIN 81 MG CHEW TABLET PO ONE (18:30)
--- NOTE | 2020-04-07 18:47 | REP ---
INDICATION: CHEST PAIN. COMPARISON: Comparison chest x-ray 11 March 2018. TECHNIQUE: Portable upright AP chest radiograph. FINDINGS: The lungs are well inflated and free of infiltrate. Pleural angles are sharp. Heart size is normal. Pulmonary vasculature is not increased. EKG monitoring electrodes overlie the chest. IMPRESSION: No active disease. <Electronically signed by Jeremy John > 04/07/20 [id number]
[2020-04-07 20:21] LABS: BASO % 0.4 % (0.0-1.0); EOS # 0.2 10^3/uL (0.0-0.5); EOS % 3.5 % (0.0-3.0); HEMATOCRIT 41.2 % (36.0-47.0); HEMOGLOBIN 12.8 g/dl (12.0-15.5); LYMPH # 1.8 10^3/uL (1.5-5.0); LYMPH % 30.7 % (24.0-44.0); MEAN CORPUSCULAR HEMOGLOBIN 27.4 pg (27.0-33.0); MEAN CORPUSCULAR HGB CONC 31.1 g/dl (32.0-36.5); MEAN CORPUSCULAR VOLUME 88.2 fl (80.0-96.0); MONO # 0.5 10^3/uL (0.0-0.8); MONO % 8.6 % (2.0-8.0); NEUTROPHILS # 3.2 10^3/uL (1.5-8.5); NEUTROPHILS % 56.6 % (36.0-66.0); PLATELET COUNT, AUTOMATED 262 10^3/uL (150-450); RED BLOOD COUNT 4.67 10^6/uL (4.00-5.40); WHITE BLOOD COUNT 5.7 10^3/uL (4.0-10.0)
[2020-04-07 20:25] LABS: INR 0.95; PROTHROMBIN TIME 12.9 SECONDS (12.5-14.3)
[2020-04-07 20:28] LABS: D-DIMER QUANT 284.06 ng/ml (<500)
[2020-04-07 20:38] LABS: ALBUMIN 3.6 GM/DL (3.2-5.2); ALT/SGPT 38 U/L (12-78); BILIRUBIN,DIRECT < 0.1 MG/DL (0.0-0.2); BILIRUBIN,TOTAL 0.1 MG/DL (0.2-1.0); BLOOD UREA NITROGEN 5 MG/DL (7-18); CALCIUM LEVEL 9.5 MG/DL (8.5-10.1); CARBON DIOXIDE LEVEL 26 MEQ/L (21-32); CHLORIDE LEVEL 107 MEQ/L (98-107); CK-MB VALUE MASS < 1.0 NG/ML (<3.6); CPK CREATINE PHOSPHOKINASE 76 U/L (26-192); CREATININE FOR GFR 0.67 MG/DL (0.55-1.30); GLOMERULAR FILTRATION RATE > 60.0 (>60); GLUCOSE, FASTING 83 MG/DL (70-100); LIPASE 77 U/L (73-393); MB/CK RELATIVE INDEX 1.32 (< OR =4); NT-PRO BNP 17 PG/ML (<125); POTASSIUM SERUM 3.9 MEQ/L (3.5-5.1); SODIUM LEVEL 142 MEQ/L (136-145); TOTAL PROTEIN 7.1 GM/DL (6.4-8.2); TROPONIN I < 0.02 NG/ML (< 0.10)
[2020-04-07 21:00] VITALS: BP 106/68
--- NOTE | 2020-04-08 08:18 | ECGEPIP ---
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
== END 2020-04-07 21:14 | disposition home or self-care (01) ==
LOC: M ED 16:19
DX: R07.89 Other chest pain (principal); R42 Dizziness and giddiness; K21.9 Gastro-esophageal reflux disease without esophagitis; Z79.899 Other long term (current) drug therapy; Z88.2 Allergy status to sulfonamides; Z88.8 Allergy status to other drugs, medicaments and biological substances; Z91.018 Allergy to other foods

== ENCOUNTER → 2020-09-20 | Outpatient (REF) | payer OTHER ==
[~2020-09-20] MED LIST changes: +ACYC1TAB; +ACYC1TAB PO; -ACYC400T; -ACYC400T PO; -AMIT10TA; +AMIT10TA7; -CEFD1CAP8; +CEFD300C41; +DOXY-443; -DOXY100C37; -FLUC100T PO; +FLUC100T3 PO; -FLUC150T; +FLUC150T9; +OMEP-173; -OMEP-218
== END ==
LOC: M LAB REF 15:09
PROVIDERS: ATTEND Physician Assistant
DX: J02.9 Acute pharyngitis, unspecified (principal)

== ENCOUNTER 2021-02-02 16:25 | Emergency (ER) | payer OTHER ==
[~2021-02-02] VITALS: Ht 154.9 cm; Wt 77.2 kg
[2021-02-02 20:35] LABS: MONO SCRN NEGATIVE (NEGATIVE)
[2021-02-02] MEDS ORDERED: IBUPROFEN 800 MG TAB PO ONE (22:45)
[2021-02-02 23:50] VITALS: BP 112/69
== END 2021-02-03 00:03 | disposition home or self-care (01) ==
LOC: M ED 16:25
DX: R13.10 Dysphagia, unspecified (principal); Z88.2 Allergy status to sulfonamides; Z88.8 Allergy status to other drugs, medicaments and biological substances; Z91.018 Allergy to other foods

== ENCOUNTER 2021-03-06 08:45 | Emergency (ER) | payer OTHER ==
[~2021-03-06] VITALS: Ht 154.9 cm; Wt 72.7 kg
[2021-03-06 08:45] VITALS: BP 133/82
[~2021-03-06 08:45] MED LIST changes: +FLUC100T PO; -FLUC100T3 PO; +FLUC150T; -FLUC150T9
== END 2021-03-06 10:10 | disposition home or self-care (01) ==
LOC: M ED 08:45
DX: H92.03 Otalgia, bilateral (principal); Z20.822 Contact with and (suspected) exposure to COVID-19; Z88.2 Allergy status to sulfonamides; Z88.8 Allergy status to other drugs, medicaments and biological substances; Z91.018 Allergy to other foods

== ENCOUNTER → 2021-05-06 | Outpatient (CLI) | payer OTHER ==
[~2021-05-06] MED LIST changes: -FLUC100T PO; +FLUC100T3 PO; -FLUC150T; +FLUC150T9
== END ==
LOC: M LAB 10:33
PROVIDERS: ATTEND Specialist
DX: N92.6 Irregular menstruation, unspecified (principal)

== ENCOUNTER → 2021-05-08 | Outpatient (CLI) | payer OTHER | LOC: M LAB 09:48 | PROVIDERS: ATTEND Specialist | DX: N92.6 Irregular menstruation, unspecified (principal) ==

== ENCOUNTER → 2021-05-16 | Outpatient (REF) | payer OTHER ==
[2021-05-16 17:59] LABS: HEMATOCRIT 42.3 % (36.0-47.0); HEMOGLOBIN 13.6 g/dl (12.0-15.5); MEAN CORPUSCULAR HEMOGLOBIN 27.8 pg (27.0-33.0); MEAN CORPUSCULAR HGB CONC 32.2 g/dl (32.0-36.5); MEAN CORPUSCULAR VOLUME 86.5 fl (80.0-96.0); PLATELET COUNT, AUTOMATED 277 10^3/uL (150-450); RED BLOOD COUNT 4.89 10^6/uL (4.00-5.40); WHITE BLOOD COUNT 7.3 10^3/uL (4.0-10.0)
[2021-05-16 18:30] LABS: HCG, SERUM QUANTITATIVE 527 MIU/ML
[2021-05-16 18:48] LABS: HEPATITIS B SURFACE ANTIGEN NEGATIVE (NEGATIVE)
[2021-05-16 19:16] LABS: HEPATITIS C VIRUS ABY INDEX 0.2 INDEX (<0.8); HIV 1&2 SCREEN CENTAUR NEGATIVE (NEGATIVE)
== END ==
LOC: M LAB REF 16:25
PROVIDERS: ATTEND Obstetrics & Gynecology
DX: Z32.01 Encounter for pregnancy test, result positive (principal)

== ENCOUNTER → 2021-05-22 | Outpatient (REF) | payer OTHER | LOC: M LAB REF 12:16 | PROVIDERS: ATTEND Obstetrics & Gynecology | DX: O36.80X0 Pregnancy with inconclusive fetal viability, not applicable or unspecified (principal); Z3A.00 Weeks of gestation of pregnancy not specified ==

== ENCOUNTER → 2021-05-29 | Outpatient (REF) | payer OTHER | LOC: M LAB REF 12:11 | PROVIDERS: ATTEND Obstetrics & Gynecology | DX: O36.80X0 Pregnancy with inconclusive fetal viability, not applicable or unspecified (principal) ==

== ENCOUNTER 2021-06-03 22:06 | Emergency (ER) | payer OTHER ==
[~2021-06-03] VITALS: Ht 154.9 cm; Wt 75.9 kg
[2021-06-03 22:06] VITALS: BP 125/67
[2021-06-03 23:02] LABS: BASO % 0.6 % (0.0-1.0); EOS # 0.1 10^3/uL (0.0-0.5); HEMATOCRIT 39.6 % (36.0-47.0); LYMPH # 2.6 10^3/uL (1.5-5.0); LYMPH % 39.2 % (24.0-44.0); MEAN CORPUSCULAR HEMOGLOBIN 28.6 pg (27.0-33.0); MEAN CORPUSCULAR HGB CONC 32.8 g/dl (32.0-36.5); MEAN CORPUSCULAR VOLUME 87.2 fl (80.0-96.0); MONO # 0.5 10^3/uL (0.0-0.8); MONO % 7.5 % (2.0-8.0); NEUTROPHILS # 3.3 10^3/uL (1.5-8.5); NEUTROPHILS % 50.7 % (36.0-66.0); PLATELET COUNT, AUTOMATED 247 10^3/uL (150-450); RED BLOOD COUNT 4.54 10^6/uL (4.00-5.40); WHITE BLOOD COUNT 6.6 10^3/uL (4.0-10.0)
[2021-06-03 23:06] LABS: APPEARANCE, URINE CLEAR (CLEAR); BACTERIA, URINE AUTO 1+ (NEGATIVE); BILIRUBIN, URINE AUTO NEGATIVE (NEGATIVE); BLOOD, URINE BLOOD 2+ (NEGATIVE); COLOR, URINE STRAW (YELLOW); GLUCOSE, URINE (UA) AUTO NEGATIVE (NEGATIVE); KETONE, URINE AUTO NEGATIVE (NEGATIVE); LEUKOCYTE ESTERASE, URINE AUTO NEGATIVE (NEGATIVE); MUCUS, URINE SMALL (NEGATIVE); NITRITE, URINE AUTO NEGATIVE (NEGATIVE); PROTEIN, URINE AUTO NEGATIVE (NEGATIVE); RBC, URINE AUTO 3 /HPF (0-3); SPECIFIC GRAVITY URINE AUTO 1.004 (1.002-1.035); SQUAMOUS EPITHELIAL CELL UR AU 1 /HPF (0-6); UROBILINOGEN, URINE AUTO 0.2 mg/dL (0.0-2.0); WBC, URINE AUTO 2 /HPF (0-3)
[2021-06-03 23:45] LABS: BLOOD UREA NITROGEN 8 MG/DL (7-18); CALCIUM LEVEL 8.8 MG/DL (8.5-10.1); CARBON DIOXIDE LEVEL 27 MEQ/L (21-32); CHLORIDE LEVEL 106 MEQ/L (98-107); CREATININE FOR GFR 0.66 MG/DL (0.55-1.30); GLOMERULAR FILTRATION RATE > 60.0 (>60); GLUCOSE, FASTING 101 MG/DL (70-100); HCG, SERUM QUANTITATIVE 1570 MIU/ML; SODIUM LEVEL 139 MEQ/L (136-145)
[2021-06-04] MEDS ORDERED: METR-265 PO (01:21)
[2021-06-04] MEDS ORDERED: metroNIDAZOLE (FLAGYL) 500MG TABLET PO ONE (01:25)
[2021-06-04 02:47] LABS: GC DNA AMPLIFICATION NEGATIVE (NEGATIVE)
== END 2021-06-04 01:35 | disposition home or self-care (01) ==
LOC: M ED 22:06
DX: O20.9 Hemorrhage in early pregnancy, unspecified (principal); O23.591 Infection of other part of genital tract in pregnancy, first trimester; O34.81 Maternal care for other abnormalities of pelvic organs, first trimester; N83.201 Unspecified ovarian cyst, right side; Z79.899 Other long term (current) drug therapy; Z88.1 Allergy status to other antibiotic agents; Z88.8 Allergy status to other drugs, medicaments and biological substances; Z3A.00 Weeks of gestation of pregnancy not specified

== ENCOUNTER → 2021-06-05 | Outpatient (REF) | payer OTHER ==
[~2021-06-05] MED LIST changes: +METR-265 PO
== END ==
LOC: M LAB REF 17:20
PROVIDERS: ATTEND Obstetrics & Gynecology
DX: O36.80X0 Pregnancy with inconclusive fetal viability, not applicable or unspecified (principal); Z3A.00 Weeks of gestation of pregnancy not specified

== ENCOUNTER 2021-06-08 10:55 | Day surgery (SDC) | payer OTHER ==
[~2021-06-08] VITALS: Ht 154.9 cm; Wt 76.4 kg
[2021-06-08 13:39] LABS: BASO % 0.3 % (0.0-1.0); EOS % 0.3 % (0.0-3.0); HEMATOCRIT 39.7 % (36.0-47.0); HEMOGLOBIN 12.9 g/dl (12.0-15.5); LYMPH # 0.9 10^3/uL (1.5-5.0); LYMPH % 7.9 % (24.0-44.0); MEAN CORPUSCULAR HEMOGLOBIN 28.6 pg (27.0-33.0); MEAN CORPUSCULAR HGB CONC 32.5 g/dl (32.0-36.5); MONO # 0.5 10^3/uL (0.0-0.8); MONO % 3.9 % (2.0-8.0); NEUTROPHILS # 10.3 10^3/uL (1.5-8.5); NEUTROPHILS % 87.3 % (36.0-66.0); PLATELET COUNT, AUTOMATED 256 10^3/uL (150-450); RED BLOOD COUNT 4.51 10^6/uL (4.00-5.40); WHITE BLOOD COUNT 11.8 10^3/uL (4.0-10.0)
[2021-06-08 14:02] LABS: APPEARANCE, URINE CLEAR (CLEAR); BACTERIA, URINE AUTO 1+ (NEGATIVE); BILIRUBIN, URINE AUTO NEGATIVE (NEGATIVE); BLOOD, URINE BLOOD 2+ (NEGATIVE); COLOR, URINE STRAW (YELLOW); GLUCOSE, URINE (UA) AUTO NEGATIVE (NEGATIVE); KETONE, URINE AUTO TRACE mg/dL (NEGATIVE); LEUKOCYTE ESTERASE, URINE AUTO NEGATIVE (NEGATIVE); MUCUS, URINE SMALL (NEGATIVE); NITRITE, URINE AUTO NEGATIVE (NEGATIVE); PROTEIN, URINE AUTO NEGATIVE (NEGATIVE); RBC, URINE AUTO 0 /HPF (0-3); SPECIFIC GRAVITY URINE AUTO 1.003 (1.002-1.035); SQUAMOUS EPITHELIAL CELL UR AU 1 /HPF (0-6); TRANSITIONAL EPITHELIAL AUTO <1 /HPF; UROBILINOGEN, URINE AUTO 0.2 mg/dL (0.0-2.0); WBC, URINE AUTO 1 /HPF (0-3)
[2021-06-08] MEDS ORDERED: ONDANSETRON 4MG/2ML VIAL IV ONE (14:10)
[2021-06-08] MEDS ORDERED: MORPHINE 2 MG/ML 1ML VIAL IV PRN (14:10)
[2021-06-08] MEDS ORDERED: NS 1,000 ML IV ONE (14:10)
[2021-06-08] MEDS ORDERED: METR-265 PO (14:31)
[2021-06-08] MEDS ORDERED: HOME MED LIST COMPLETE! XX SCH (14:35)
[2021-06-08] MEDS ORDERED: LIDOCAINE 2% 100MG/5ML SDV (FOR ANES.) As Ordered ONE (15:58)
[2021-06-08] MEDS ORDERED: ACETAMINOPHEN 1000MG 100ML IV BTL (OFIRMEV) (J0131 PER 10MG) As Ordered ONE (15:58)
[2021-06-08] MEDS ORDERED: propofoL 200 MG/20 ML VIAL As Ordered ONE (15:58)
[2021-06-08] MEDS ORDERED: fentaNYL 100 MCG/2 ML INJECTION As Ordered ONE (15:58)
[2021-06-08] MEDS ORDERED: MIDAZOLAM INJ 2MG/2ML VIAL (J2250 PER 1MG) As Ordered ONE (15:58)
[2021-06-08] MEDS ORDERED: ROCURONIUM BROMIDE 50 MG/5 ML VIAL As Ordered ONE ×2 (15:58→17:10)
[2021-06-08] MEDS ORDERED: BUPIVACAINE HCL 0.25% 30ML VIAL As Ordered ONE (15:59)
[2021-06-08] MEDS ORDERED: KETOROLAC 60MG 2ML VIAL As Ordered ONE (16:00)
[2021-06-08] MEDS ORDERED: dexameTHASONE 4 MG/ML 1ML VIAL (J1100 PER 1MG) As Ordered ONE (16:00)
[2021-06-08] MEDS ORDERED: ONDANSETRON 4MG/2ML VIAL As Ordered ONE (16:00)
[2021-06-08] MEDS ORDERED: SUGAMMADEX SODIUM 500 MG/5 ML VIAL (BRIDION) As Ordered ONE (17:15)
[2021-06-08] MEDS ORDERED: ONDANSETRON 4MG/2ML VIAL IV PRN (17:55)
[2021-06-08] MEDS ORDERED: LR 1,000 ML IV SCH (17:55)
[2021-06-08] MEDS ORDERED: PERCOCET 5MG/325MG TAB PO PRN (18:00)
[2021-06-08] MEDS: oxyCODONE 5MG TAB PO PRN ×2 (18:05→18:35)
[2021-06-08] MEDS: fentaNYL 100 MCG/2 ML INJECTION IV PRN ×4 (18:06→18:24)
[2021-06-08] MEDS ORDERED: PERCOCET PO (18:39)
[2021-06-08] MEDS ORDERED: IBUP80TA PO (18:40)
[2021-06-08 19:10] VITALS: BP 107/58
[2021-06-08] MEDS ORDERED: KETOROLAC 30 MG/ML 1ML VIAL IV SCH (23:00)
== END 2021-06-08 19:16 | disposition home or self-care (01) ==
LOC: M ED 10:55 → M SDC 10:56
PROVIDERS: ATTEND Obstetrics & Gynecology
DX: O00.101 Right tubal pregnancy without intrauterine pregnancy (principal); N83.8 Other noninflammatory disorders of ovary, fallopian tube and broad ligament; Z88.2 Allergy status to sulfonamides; Z91.018 Allergy to other foods; Z88.8 Allergy status to other drugs, medicaments and biological substances
CPT/HCPCS: 59151; 76801; 76817; 81001; 84702; 85025; 86850; 86900; 86901; 87426; 88305; 96361; 96374; 96375; 99284; J0131; J1100; J1885; J2250; J2270; J2405; J3010

== ENCOUNTER → 2021-07-14 | Outpatient (REF) | payer OTHER ==
[~2021-07-14] MED LIST changes: -AFRI0.058; +IBUP80TA PO; +OXYM15SP2; +PERCOCET PO
== END ==
LOC: M LAB REF 12:28
PROVIDERS: ATTEND Internal Medicine
DX: J02.9 Acute pharyngitis, unspecified (principal)

== ENCOUNTER → 2023-03-14 | Outpatient (REF) | payer OTHER ==
[~2023-03-14] MED LIST changes: +CEFD1CAP9; -CEFD300C41; -DOXY-350 PO; +DOXY-444 PO
[2023-03-14 17:40] LABS: HEMATOCRIT 40.6 % (36.0-47.0); HEMOGLOBIN 13.4 g/dl (12.0-15.5); MEAN CORPUSCULAR HEMOGLOBIN 29.3 pg (27.0-33.0); MEAN CORPUSCULAR VOLUME 88.8 fl (80.0-96.0); PLATELET COUNT, AUTOMATED 218 10^3/uL (150-450); RED BLOOD COUNT 4.57 10^6/uL (4.00-5.40); WHITE BLOOD COUNT 7.8 10^3/uL (4.0-10.0)
[2023-03-14 18:37] LABS: HIV 1&2 SCREEN NEGATIVE (NEGATIVE)
[2023-03-14 18:46] LABS: HEPATITIS C VIRUS ABY INDEX < 0.02 INDEX (<0.8)
== END ==
LOC: M PLALAB 17:00
PROVIDERS: ATTEND Advanced Practice Midwife
DX: Z34.81 Encounter for supervision of other normal pregnancy, first trimester (principal)

== ENCOUNTER → 2023-03-14 | Outpatient (CLI) | payer OTHER | LOC: M WHC 15:31 | PROVIDERS: ATTEND Advanced Practice Midwife | DX: Z53.9 Procedure and treatment not carried out, unspecified reason (principal) ==

== ENCOUNTER → 2023-04-18 | Outpatient (CLI) | payer OTHER | LOC: M WHC 07:09 | PROVIDERS: ATTEND Advanced Practice Midwife | DX: O28.3 Abnormal ultrasonic finding on antenatal screening of mother (principal); Z3A.20 20 weeks gestation of pregnancy ==

== ENCOUNTER 2023-08-13 10:00 | Emergency (ER) | payer OTHER ==
[~2023-08-13] VITALS: Ht 154.9 cm; Wt 83.1 kg
[~2023-08-13 10:00] MED LIST changes: +DOXY-323; +DOXY-440 PO; -DOXY-443; -DOXY-444 PO
[2023-08-13] MEDS ORDERED: IBUP200C25 PO (10:42)
[2023-08-13 15:02] LABS: APPEARANCE, URINE CLEAR (CLEAR); BACTERIA, URINE AUTO NEGATIVE (NEGATIVE); BILIRUBIN, URINE AUTO NEGATIVE (NEGATIVE); BLOOD, URINE BLOOD NEGATIVE (NEGATIVE); COLOR, URINE YELLOW (YELLOW); GLUCOSE, URINE (UA) AUTO NEGATIVE (NEGATIVE); KETONE, URINE AUTO TRACE mg/dL (NEGATIVE); LEUKOCYTE ESTERASE, URINE AUTO NEGATIVE (NEGATIVE); MUCUS, URINE SMALL (NEGATIVE); NITRITE, URINE AUTO NEGATIVE (NEGATIVE); PROTEIN, URINE AUTO NEGATIVE (NEGATIVE); RBC, URINE AUTO 1 /HPF (0-3); SPECIFIC GRAVITY URINE AUTO 1.012 (1.002-1.035); SQUAMOUS EPITHELIAL CELL UR AU 0 /HPF (0-6); UROBILINOGEN, URINE AUTO 0.2 mg/dL (0.0-2.0); WBC, URINE AUTO 1 /HPF (0-3)
[2023-08-13 15:04] LABS: URINE PREG TEST NEGATIVE (NEGATIVE)
[2023-08-13 15:58] VITALS: BP 147/88; TEMP 97.7; O2SAT 96
== END 2023-08-13 15:59 | disposition home or self-care (01) ==
LOC: M ED 10:00
DX: S30.0XXA Contusion of lower back and pelvis, initial encounter (principal); W22.8XXA Striking against or struck by other objects, initial encounter; Y92.9 Unspecified place or not applicable; Y93.9 Activity, unspecified; Y99.9 Unspecified external cause status; Z87.440 Personal history of urinary (tract) infections; F41.9 Anxiety disorder, unspecified; F32.A Depression, unspecified; Z88.2 Allergy status to sulfonamides; Z88.8 Allergy status to other drugs, medicaments and biological substances; Z91.018 Allergy to other foods

== ENCOUNTER 2023-08-21 15:34 | Emergency (ER) | payer OTHER ==
[~2023-08-21] VITALS: Ht 154.9 cm; Wt 87.7 kg
[2023-08-21] MEDS ORDERED: ACET32TAB PO (15:45)
[2023-08-21] MEDS: NS 1,000 ML IV ONE (17:59)
[2023-08-21] MEDS: METOCLOPRAMIDE INJ 10MG/2ML VIAL IV ONE (18:00)
[2023-08-21] MEDS: diphenhydrAMINE 50MG/ML VIAL IV ONE (18:00)
[2023-08-21] MEDS: ACETAMINOPHEN 500 MG TAB PO ONE (18:00)
[2023-08-21 18:05] LABS: BASO % 0.6 % (0.0-1.0); EOS # 0.1 10^3/uL (0.0-0.5); EOS % 1.6 % (0.0-3.0); HEMATOCRIT 39.7 % (36.0-47.0); HEMOGLOBIN 13.5 g/dl (12.0-15.5); LYMPH # 1.9 10^3/uL (1.5-5.0); LYMPH % 27.3 % (24.0-44.0); MEAN CORPUSCULAR HEMOGLOBIN 29.7 pg (27.0-33.0); MEAN CORPUSCULAR VOLUME 87.4 fl (80.0-96.0); MONO # 0.5 10^3/uL (0.0-0.8); MONO % 7.3 % (2.0-8.0); NEUTROPHILS # 4.5 10^3/uL (1.5-8.5); NEUTROPHILS % 62.9 % (36.0-66.0); PLATELET COUNT, AUTOMATED 252 10^3/uL (150-450); RED BLOOD COUNT 4.54 10^6/uL (4.00-5.40); WHITE BLOOD COUNT 7.1 10^3/uL (4.0-10.0)
[2023-08-21 18:14] LABS: ERYTHROCYTE SEDIMENTATION RATE 17 mm/hr (0-20)
[2023-08-21 18:36] LABS: C REACTIVE PROTEIN QUANTITATIV < 0.40 MG/DL (<1.0)
[2023-08-21 18:37] LABS: BLOOD UREA NITROGEN 9 MG/DL (9-23); CALCIUM LEVEL 9.3 MG/DL (8.5-10.1); CARBON DIOXIDE LEVEL 24 MMOL/L (20-31); CHLORIDE LEVEL 107 MMOL/L (98-107); CREATININE FOR GFR 0.61 MG/DL (0.55-1.30); GLOMERULAR FILTRATION RATE > 60.0 (>60); GLUCOSE, FASTING 95 MG/DL (60-100); POTASSIUM SERUM 3.7 MMOL/L (3.5-5.1); SODIUM LEVEL 140 MMOL/L (136-145)
[2023-08-21 18:44] VITALS: TEMP 98.6
[2023-08-21 20:33] VITALS: BP 119/79; O2SAT 99
== END 2023-08-21 20:36 | disposition home or self-care (01) ==
LOC: M ED 15:34
DX: R51.9 Headache, unspecified (principal); Z88.2 Allergy status to sulfonamides; Z88.8 Allergy status to other drugs, medicaments and biological substances; Z91.018 Allergy to other foods
CPT/HCPCS: 70450; 80048; 84702; 85025; 85652; 86140; 87486; 87581; 87633; 87798; 96361; 96374; 96375; 99284; J1200; J2765

== ENCOUNTER 2023-09-16 18:21 | Emergency (ER) | payer OTHER ==
[~2023-09-16] VITALS: Ht 154.9 cm; Wt 82.9 kg
[~2023-09-16 18:21] MED LIST changes: +ACET32TAB PO
[2023-09-16 18:22] VITALS: BP 136/81; TEMP 98.1; O2SAT 99
[2023-09-16] MEDS ORDERED: CETI10CA2 PO (18:29)
== END 2023-09-16 21:37 | disposition left against medical advice (07) ==
LOC: M ED 18:21
DX: Z53.21 Procedure and treatment not carried out due to patient leaving prior to being seen by health care provider (principal)

== ENCOUNTER → 2023-11-28 | Outpatient (REF) | payer OTHER ==
[~2023-11-28] MED LIST changes: +CETI10CA2 PO; -DOXY-323; +DOXY-441; +GABA-1172; -GABA-282
== END ==
LOC: M LAB REF 12:09
PROVIDERS: ATTEND Physician Assistant
DX: B34.9 Viral infection, unspecified (principal)

== ENCOUNTER → 2023-12-12 | Outpatient (REF) | payer OTHER ==
[2023-12-12 19:33] LABS: APPEARANCE, URINE MANUAL CLOUDY (CLEAR); COLOR, URINE MANUAL LT YELLOW (YELLOW)
[2023-12-12 19:34] LABS: BILIRUBIN, URINE MANUAL NEGATIVE (NEGATIVE); BLOOD URINE MANUAL POSITIVE (NEGATIVE); GLUCOSE, URINE (UA) MANUAL NEGATIVE (NEGATIVE); KETONE, URINE MANUAL NEGATIVE (NEGATIVE); LEUKOCYTE ESTERASE, URINE MAN POSITIVE (NEGATIVE); NITRITE, URINE MANUAL NEGATIVE (NEGATIVE); PROTEIN, URINE MANUAL TRACE mg/dL (NEGATIVE); UROBILINOGEN, URINE MANUAL NORMAL (NORMAL)
[2023-12-12 19:42] LABS: WBC, URINE TNTC /hpf (0-3)
[2023-12-12 19:43] LABS: RBC, URINE 15-20 /hpf (0-3); SQUAMOUS EPITHELIAL CELL URINE SMALL AMOUNT /hpf (SMALL AMT)
[2023-12-12 19:44] LABS: BACTERIA, URINE SMALL AMOUNT; HYALINE CAST, URINE NONE SEEN /lpf (0-1)
== END ==
LOC: M LAB REF 19:16
PROVIDERS: ATTEND Physician Assistant
DX: N39.0 Urinary tract infection, site not specified (principal)

== ENCOUNTER 2024-01-02 13:52 | Emergency (ER) | payer OTHER ==
[~2024-01-02] VITALS: Ht 154.9 cm; Wt 82.0 kg
[2024-01-02 17:19] VITALS: BP 129/79; TEMP 97.9; O2SAT 100
[2024-01-02] MEDS ORDERED: CLINDAMYCIN 150MG CAPSULE PO ONE (17:50)
[2024-01-02] MEDS ORDERED: AMOX875T2 PO (17:55)
[2024-01-02] MEDS ORDERED: NAPR-837 PO (17:55)
[2024-01-02] MEDS: NAPROXEN 250 MG TAB PO ONE (18:07)
[2024-01-02] MEDS: LIDOCAINE VISCOUS 2% SOLN 15ML UDC SSP ONE (18:08)
[2024-01-02] MEDS: AUGMENTIN 875 MG TAB PO ONE (18:08)
== END 2024-01-02 18:13 | disposition home or self-care (01) ==
LOC: M ED 13:52
DX: K04.7 Periapical abscess without sinus (principal); Z88.2 Allergy status to sulfonamides; Z88.8 Allergy status to other drugs, medicaments and biological substances; Z91.018 Allergy to other foods; Z79.1 Long term (current) use of non-steroidal anti-inflammatories (NSAID); Z79.2 Long term (current) use of antibiotics; Z79.899 Other long term (current) drug therapy

== ENCOUNTER 2024-02-15 18:50 | Emergency (ER) | payer OTHER ==
[~2024-02-15] VITALS: Ht 154.9 cm; Wt 79.5 kg
[~2024-02-15 18:50] MED LIST changes: +NAPR-837 PO
[2024-02-15 19:17] LABS: BASO % 0.3 % (0.0-1.0); EOS % 0.3 % (0.0-3.0); HEMATOCRIT 38.6 % (36.0-47.0); HEMOGLOBIN 13.3 g/dl (12.0-15.5); LYMPH # 0.5 10^3/uL (1.5-5.0); LYMPH % 6.7 % (24.0-44.0); MEAN CORPUSCULAR HEMOGLOBIN 29.3 pg (27.0-33.0); MEAN CORPUSCULAR HGB CONC 34.5 g/dl (32.0-36.5); MONO # 0.4 10^3/uL (0.0-0.8); MONO % 5.4 % (2.0-8.0); NEUTROPHILS # 6.1 10^3/uL (1.5-8.5); NEUTROPHILS % 87.2 % (36.0-66.0); PLATELET COUNT, AUTOMATED 246 10^3/uL (150-450); RED BLOOD COUNT 4.54 10^6/uL (4.00-5.40)
[2024-02-15 19:40] LABS: LIPASE 30 U/L (12-53)
[2024-02-15 19:42] LABS: ALBUMIN 4.1 G/DL (3.2-5.2); ALKALINE PHOSPHATASE 70 U/L (35-104); ALT/SGPT 13 U/L (7.0-40); AST/SGOT 14 U/L (<34); BILIRUBIN,DIRECT 0.2 MG/DL (<0.4); BILIRUBIN,TOTAL 0.6 MG/DL (0.3-1.2); BLOOD UREA NITROGEN 13 MG/DL (9-23); CALCIUM LEVEL 9.1 MG/DL (8.5-10.1); CARBON DIOXIDE LEVEL 21 MMOL/L (20-31); CHLORIDE LEVEL 106 MMOL/L (98-107); CREATININE FOR GFR 0.58 MG/DL (0.55-1.30); GLOMERULAR FILTRATION RATE > 60.0 (>60); GLUCOSE, FASTING 136 MG/DL (60-100); POTASSIUM SERUM 3.4 MMOL/L (3.5-5.1); SODIUM LEVEL 140 MMOL/L (136-145); TOTAL PROTEIN 7.8 G/DL (5.7-8.2)
[2024-02-15 19:57] LABS: URINE PREG TEST NEGATIVE (NEGATIVE)
[2024-02-15 20:11] LABS: KETONE, URINE AUTO RFX 1+ mg/dL (NEGATIVE); MUCUS, URINE RFX SMALL (NEGATIVE); NITRITE, URINE AUTO RFX NEGATIVE (NEGATIVE); RBC, URINE AUTO RFX 7 /HPF (0-3); SQUAM EPITHELIAL CELL UR AURFX 18 /HPF (0-6)
[2024-02-15 20:15] LABS: LEUKOCYTE ESTERASE UR AUTO RFX 1+ (NEGATIVE); WBC, URINE AUTO RFX 11 /HPF (0-3)
[2024-02-15] MEDS: ONDANSETRON 4MG 2ML VIAL IV ONE (22:21)
[2024-02-15] MEDS: KETOROLAC 30 MG/ML 1ML VIAL IV ONE (22:44)
[2024-02-15] MEDS ORDERED: ONDA-282 PO (23:18)
[2024-02-15 23:25] VITALS: BP 107/64; TEMP 100.1; O2SAT 98
== END 2024-02-15 23:30 | disposition home or self-care (01) ==
LOC: EDBD 18:50 → M ED 18:50
DX: K52.9 Noninfective gastroenteritis and colitis, unspecified (principal); F32.A Depression, unspecified; Z88.2 Allergy status to sulfonamides; Z88.8 Allergy status to other drugs, medicaments and biological substances; Z91.018 Allergy to other foods
CPT/HCPCS: 80048; 80076; 81001; 83690; 84703; 85025; 87086; 96374; 96375; 99284; J1885; J2405

== ENCOUNTER → 2024-04-28 | Outpatient (REF) | payer OTHER ==
[~2024-04-28] MED LIST changes: +ONDA-282 PO
[2024-04-28 15:34] LABS: APPEARANCE, URINE HAZY (CLEAR); BACTERIA, URINE AUTO NEGATIVE (NEGATIVE); BILIRUBIN, URINE AUTO NEGATIVE (NEGATIVE); BLOOD, URINE BLOOD NEGATIVE (NEGATIVE); COLOR, URINE YELLOW (YELLOW); GLUCOSE, URINE (UA) AUTO NEGATIVE (NEGATIVE); KETONE, URINE AUTO NEGATIVE (NEGATIVE); LEUKOCYTE ESTERASE, URINE AUTO NEGATIVE (NEGATIVE); MUCUS, URINE SMALL (NEGATIVE); NITRITE, URINE AUTO NEGATIVE (NEGATIVE); PROTEIN, URINE AUTO NEGATIVE (NEGATIVE); RBC, URINE AUTO 0 /HPF (0-3); SPECIFIC GRAVITY URINE AUTO 1.017 (1.002-1.035); SQUAMOUS EPITHELIAL CELL UR AU 7 /HPF (0-6); UROBILINOGEN, URINE AUTO 0.2 mg/dL (0.0-2.0); WBC, URINE AUTO 1 /HPF (0-3)
== END ==
LOC: M LAB REF 15:02
PROVIDERS: ATTEND Physician Assistant
DX: N39.0 Urinary tract infection, site not specified (principal)

== ENCOUNTER → 2024-09-09 | Outpatient (REF) | payer OTHER ==
[~2024-09-09] MED LIST changes: +ACYC-438; +ACYC-438 PO; -ACYC1TAB; -ACYC1TAB PO; +AMIT10TA11; -AMIT10TA7; -CLOT10TR PO; +CLOT10TR11 PO
== END ==
LOC: M LAB REF 11:33
PROVIDERS: ATTEND Physician Assistant
DX: J02.9 Acute pharyngitis, unspecified (principal)